=== PATIENT | male | born 1990 | race Caucasian/White ===

== ENCOUNTER 2024-11-23 12:37 | Emergency (ER) | payer OTHER, SELFPAY ==
[2024-11-23 12:45] VITALS: BP 149/83; PULSE 97; RESP 14; TEMP 37.1; O2SAT 95; BMI 43.7
[2024-11-23 13:04] VITALS: BP 149/83; PULSE 97; RESP 14; TEMP 37.1; O2SAT 95
[2024-11-23] MEDS: Ketorolac Tromethamine 30 MG/ML VIAL IM (13:15)
[2024-11-23 13:45] LABS: MANUAL DIFF FLAG NO
[2024-11-23 13:50] LABS: Basophils Percent Auto 0.3 % (0-2); Eosinophils Percent Auto 0.5 % (0-4); Hematocrit 43.2 % (42.0-52.0); Hemoglobin 15.7 g/dl (14.0-18.0); Imm Gran Abs Auto 0.03 X10*3/uL (0.00-0.03); Imm Gran Pct Auto 0.3 % (0.0-0.4); Lymphocytes Absolute Auto 1.3 X10*3/uL (1.2-4.9); Mean Corpuscular HGB Conc 36.3 g/dl (31.0-36.0); Mean Corpuscular Hemoglobin 32.4 pg (27.0-33.0); Mean Corpuscular Volume 89.1 fL (80.0-98.0); Mean Platelet Volume 9.4 fL (9.4-12.4); Monocytes Absolute Auto 0.7 X10*3/uL (0.1-1.2); Monocytes Percent Auto 7.5 % (2-11); Neutrophils Absolute Auto 6.7 x10*3/uL (2.0-8.3); Neutrophils Percent Auto 76.4 % (45-73); Platelet Count 254 X10*3/uL (160-400); Red Blood Count 4.85 X10*6/uL (4.60-5.80); Red Cell Distribution Width 12.1 % (11.0-16.0); White Blood Count 8.8 X10*3/uL (4.8-10.8)
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
[2024-11-23] MEDS: Diphth,Pertus(ACell),Tet Adult 0.5 ML SYRINGE IM (13:55)
--- NOTE | 2024-11-23 13:55 | PC.NURSE ---
Called Rx for missing antibiotic.
[2024-11-23] MEDS: Doxycycline Monohydrate 100 MG CAPSULE PO (13:57)
[2024-11-23 14:05] LABS: Alanine Aminotransferase 31 U/L (0-40); Albumin Level 4.1 g/dL (3.5-5.0); Anion Gap 11 (12-20); Aspartate Amino Transferase 29 U/L (5-37); Bilirubin Total 0.3 mg/dL (0.0-1.0); Blood Urea Nitrogen 15 mg/dL (9-16); Carbon Dioxide 22 mmol/L (22-29); Chloride 110 mmol/L (96-108); Creatinine Clr Calc Pharmacy 173.6; Estimated Glomerular Filt Rate > 60; Glucose Random 107 mg/dL (60-115); Potassium 3.8 mmol/L (3.3-5.1); Sodium 139 mmol/L (135-145); Total Protein 7.2 g/dL (6.5-8.0)
[2024-11-23 14:24] LABS: Alkaline Phosphatase 91 U/L (39-117); HBS Num1 0.08 mIU/mL (0-7.99); HBc Num1 0.08 S/CO (0.00-0.79); HBsAGNum1 0.29 S/CO (0.00-0.99); HIV AB/AG Nonreactive (Nonreactive); HIV Num 1 0.06 S/CO (0.00-0.99); Hepatitis A Antibody IgM 0.14 Index (0-0.79); Hepatitis B Core Antibody Nonreactive (Nonreactive); Hepatitis B Surface Antigen Negative (Negative); ~Hepatitis A Antibody IgM Nonreactive (Nonreactive); ~Hepatitis B Surface Antibody NONREACTIVE (Nonreactive); ~Hepatitis C Antibody Nonreactive (Nonreactive)
--- NOTE | 2024-11-23 14:32 | PC.NURSE ---
Called Rx for status of when missing pyxis med would arrive.
[2024-11-23] MEDS: Clindamycin HCL 150 MG CAPSULE 450 MG PO (14:48)
[2024-11-23 14:57] VITALS: BP 149/83; PULSE 97; RESP 14; TEMP 37.1; O2SAT 95
== END 2024-11-23 14:58 | disposition home or self-care (01) ==
PROVIDERS: Physician Assistant Medical; Emergency Provider Emergency Medicine
DX: S41.152A Open bite of left upper arm, initial encounter (principal); Y04.1XXA Assault by human bite, initial encounter; Z77.21 Contact with and (suspected) exposure to potentially hazardous body fluids; Z23 Encounter for immunization; Y93.89 Activity, other specified; Y92.9 Unspecified place or not applicable; Y99.0 Civilian activity done for income or pay
CPT/HCPCS: 36415; 80053; 82550; 85025; 86704; 86706; 86709; 86803; 87340; 87389; 90471; 90715; 96372; 99284; J1885

== ENCOUNTER 2025-08-24 21:52 | Emergency (ER) | payer OTHER, SELFPAY ==
--- NOTE | ~2025-08-24 | XR_ITS ---
CLINICAL HISTORY: cough, sob 2 view chest x-ray Comparison: None provided Findings: Lungs are clear without acute infiltrates. No pneumothorax. Heart size normal. No acute bony abnormalities. Impression: No acute processes This document has been electronically signed by: Charly Morrison MD on 08/24/2025 22:55:29
[2025-08-24 21:59] VITALS: BP 126/76; PULSE 91; RESP 18; TEMP 38.8; O2SAT 95; BMI 37.9
[2025-08-24 22:29] LABS: MANUAL DIFF FLAG NO
[2025-08-24 22:35] LABS: Hematocrit 40.8 % (42.0-52.0); Hemoglobin 14.2 g/dl (14.0-18.0); Imm Gran Abs Auto 0.01 X10*3/uL (0.00-0.03); Imm Gran Pct Auto 0.1 % (0.0-0.4); Lymphocytes Absolute Auto 1.3 X10*3/uL (1.2-4.9); Mean Corpuscular HGB Conc 34.8 g/dl (31.0-36.0); Mean Corpuscular Hemoglobin 31.6 pg (27.0-33.0); Mean Corpuscular Volume 90.7 fL (80.0-98.0); NRBC Abs Auto 0.000 X10*3/uL (0.0-0.012); NRBC Pct Auto 0.0 /100WBC (0.0-0.2); Platelet Count 238 X10*3/uL (160-400); Red Blood Count 4.50 X10*6/uL (4.60-5.80); White Blood Count 8.1 X10*3/uL (4.8-10.8)
[2025-08-24 22:39] LABS: IDNOW Serial# 6674DD1D; Strep A Nucleic Acid Negative (Negative)
[2025-08-24 22:41] LABS: Anion Gap 13 (12-20); Blood Urea Nitrogen 13 mg/dL (9-16); Calcium 8.9 mg/dL (8.4-10.2); Carbon Dioxide 25 mmol/L (22-29); Chloride 106 mmol/L (96-108); Creatinine Clr Calc Pharmacy 142.4; Estimated Glomerular Filt Rate > 60; Potassium 3.7 mmol/L (3.3-5.1); Sodium 140 mmol/L (135-145)
[2025-08-24 23:09] LABS: Resp Syncy Virus RNA Qual PCR NEGATIVE (Negative); SARS COV2 PCR INHOUSE NEGATIVE (Negative)
[2025-08-24 23:40] VITALS: BP 122/61; PULSE 82; RESP 12; TEMP 37.3; O2SAT 95
--- OUTSIDE RECORDS SUMMARY | 2025-08-25 00:19 | XMS_ITS | Encounter Summary ---
Author Organization [facility] Address [address] [place] [id number] Phone Care Team Providers Care Ammonia Distiller Name Role Phone Radha Serrano MD Primary Care Provider Unava ilable Encounter Details Date Type Department Care Team (Late st Contact Info) Description 04/16/2017 Conversion Encounter [facility] - [address] [phone] Social History Tobacco Use Types Packs/Day Years Used Date Smoking Tobacco: Never Assessed Sex and Gender Information Value Date Recorded Sex Assigned at Not on file Legal Sex Male 4:29 PM EDT Gender Identity Not on file Sexual Orientation Not on file documented as of this encounter Plan of Treatment Not on file documented as of this encounter Visit Diagnoses Not on filedocumented in this encounter Care Teams Ammonia Distiller Relationship Specialty Start Date End Date Radha Serrano MD PCP - General 04/10/17 documented as of this encounter
--- OUTSIDE RECORDS SUMMARY | 2025-08-25 00:19 | XMS_ITS | Patient Health Record ---
Author Organization [facility] [address] Address [address] [place] [address] Care Team Providers Care Crew Clerk Name Role Phone BRIAN SMITH Unavailable [phone] MireyaAdwoa lassiter Unavailable [phone] TIM SANDHU Unavailable [phone] Allergies Allergen (clinical drug ingredient) Drug/Non Drug Allergy documented on EMR Reaction Allergy Type Onset Date Status amoxicillin Amoxicillin rash Drug Allergy Act aldair Wellbutrin rash Drug Allergy Active Results Component Value Reference Range Flag Notes URINALYSIS WITH REFLEX MICRO SCOPIC AND CULTURE Reviewed date:12/01/2024 09:52:27 AM Interpretation: Performing Lab: Notes/Report: Specific [place] Urine 1.023 1.003-1.030 pH, Urine 5.5 5.0-8.0 pH Leukocytes, Urine Negative Negative Nitrite, Urine Negative Negative Protein, Urine Negative <=Trace mg/dL Glucose, Urine Negative Negative mg/dL Ketones, Urine Trace Negative mg/dL A Urobilinogen, Urine 0.2 0.2-1.0 mg/dL Bilirubin, Urine Negative Negative Blood, Urine Negative Negative CBC WITH AUTO DIFFERENTIAL Reviewed date:12/06/2024 06:01:45 AM Interpretation: Performing Lab: Notes/Report: WBC 8.3 4.8-10.8 K/mcL RBC 4.70 4.50-5.50 M/mcL Hemoglobin 14.9 13.5-17.5 g/dL Hematocrit 43.3 42.0-54.0 % MCV 91.9 79.0-98.0 FL MCH 31.6 27.0-32.0 pcg MCHC 34.4 32.0-37.0 g/dL RDW 11.9 11.0-15.0 % Platelets 297 130-400 K/mcL MPV 9.7 7.0-11.0 FL NRBC 0.0 <1.0 % NRBC Absolute 0.00 <0.10 K/mcL Neutrophils Relative 65.4 Lymphocytes Relative 24.0 Monocytes Relative 8.6 Eosinophils Relative 1.2 Basophils Relative 0.4 Immature Granulocytes Relative 0.4 Neutrophils Absolute 5.42 1.50-7.00 K/mcL Lymphocytes Absolute 1.99 1.00-5.00 K/mcL Monocytes Absolute 0.71 0.20-1.00 K/mcL Eosinophils Absolute 0.10 0.00-0.50 K/mcL Basophils Absolute 0.03 0.00-0.20 K/mcL Immature Granulocytes Absolute 0.03 0.00-0.03 K/mcL LIPID PANEL WITH REFLEX TO D IRECT LDL Reviewed date:12/06/2024 06:02:01 AM Interpretation: Performing Lab: Notes/Report: Cholesterol 204 0-200 mg/dL H Triglycerides 211 0-150 mg/dL H HDL 37 >=40 mg/dL L LDL Calculated 125 0-100 mg/dL H VLDL Cholesterol Saul 42.2 Non HDL Chol. (LDL+VLDL) 167 <145 mg/dL H Chol/HDL Ratio 5.5 0.0-4.4 H VITAMIN D 25 HYDROXY Reviewed date:12/01/2024 09:53:48 AM Interpretation: Performing Lab: Notes/Report: Vit D, 25-Hydroxy 32.2 30.0-80.0 ng/mL THYROID STIMULATING HORMONE Reviewed date:12/06/2024 06:01:15 AM Interpretation: Performing Lab: Notes/Report: TSH 0.78 0.40-4.00 mcIU/mL COMPREHENSIVE METABOLIC PANE L Reviewed date:12/06/2024 06:01:36 AM Interpretation: Performing Lab: Notes/Report: Sodium 141 133-145 mmol/L Potassium 4.0 3.5-5.5 mmol/L Chloride 108 96-110 mmol/L CO2 24 21-32 mmol/L Anion Gap 9 3-11 Glucose 74 70-100 mg/dL BUN 13 5-25 mg/dL Creatinine 0.82 0.70-1.30 mg/dL eGFR 117 >=60 mL/min/1.73m2 Calcul ation based on the?Chronic Kidney Disease Epidemiology Collaboration (CKD-EPI) equation refit?without adjustment for race. BUN/Creatinine Ratio 15.9 Calcium 9.3 8.5-10.5 mg/dL AST (SGOT) 22 10-42 unit/L ALT (SGPT) 36 10-60 unit/L Alkaline Phosphatase 104 42-121 unit/L Total Protein 7.2 6.0-8.0 g/dL Albumin 3.9 3.2-5.0 g/dL Total Bilirubin 0.3 0.0-1.4 mg/dL HEMOGLOBIN A1C Reviewed date:12/01/2024 09:53:34 AM Interpretation: Performing Lab: Notes/Report: Hemoglobin A1C 5.4 <6.5 % Mean Bld Glu Estim. 108 TREPONEMA PALLIDUM ANTIBODY WITH REFLEX TO RPR AND PARTICLE AGGLUTINATION Reviewed date:12/01/2024 09:52:44 AM Interpretation: Performing Lab: Notes/Report: T. Pallidum Antibodies Negative Negative HIV 1, 2 ANTIBODY, P24 ANTIG EN WITH REFLEX TO DIFFERENTIATION Reviewed date:12/01/2024 09:53:12 AM Interpretation: Performing Lab: Notes/Report: This assay is a 4th generation assay allowing for earlier detection of HIV infection by detecting the presence of the HIV-1 p24 antigen as well as the traditional antibodies to HIV type 1 (including group O) and type 2. Use of a 4th generation assay is the current CDC recommendation for HIV screening. HIV Combo AB/AG Negative Negative CHLAMYDIA TRACHOMATIS AND NE ISSERIA GONORRHOEAE MOLECULAR STUDY Reviewed date:12/01/2024 09:52:15 AM Interpretation: Performing Lab: Notes/Report: Neisseria gonorrhoeae PCR Negative Negative Chlamydia trachomatis PCR Negative Negative HEPATITIS A ANTIBODY IGM Reviewed date:12/01/2024 09:53:25 AM Interpretation: Performing Lab: Notes/Report: Over the counter supplements containing high doses of biotin may interfere with this assay. If interference is suspected, patients shoud be retested after refraining from biotin supplements for 72 hours. Hepatitis A Antibody IgM Negative Negative Reason For Referral No Information Medications Medication SIG (Take, Route, Frequency, Duration) Notes Start Date End Date Status Zepbound 12.5 MG/0.5ML Solution Auto-injector 0.5 mL Subcutaneous once weekly; Duration: 30 days 08/09/2025 Active Social History Section Notes: Pt denies any tobacco use Pt admits to drinking alchohol socially once a month. denies any recreational drug use Pt denies any tobacco use Pt admits to drinking alchohol socially once a month. denies any recreational drug use Pt denies any tobacco use Pt admits to drinking alchohol socially once a month. denies any recreational drug use Pt denies any tobacco use Pt admits to drinking alchohol socially once a month. denies any recreational drug use Pt denies any tobacco use Pt admits to drinking alchohol socially once a month. denies any recreational drug use Pt denies any tobacco use Pt admits to drinking alchohol socially once a month. denies any recreational drug use Pt denies any tobacco use Pt admits to drinking alchohol socially once a month. denies any recreational drug use Pt denies any tobacco use Pt admits to drinking alchohol socially once a month. denies any recreational drug use Pt denies any tobacco use Pt admits to drinking alchohol socially once a month. denies any recreational drug use Pt denies any tobacco use Pt admits to drinking alchohol socially once a month. denies any recreational drug use Pt denies any tobacco use Pt admits to drinking alchohol socially once a month. denies any recreational drug use Pt denies any tobacco use Pt admits to drinking alchohol socially once a month. denies any recreational drug use Pt denies any tobacco use Pt admits to drinking alchohol socially once a month. denies any recreational drug use Pt denies any tobacco use Pt admits to drinking alchohol socially once a month. denies any recreational drug use Pt denies any tobacco use Pt admits to drinking alchohol socially once a month. denies any recreational drug use Pt denies any tobacco use Pt admits to drinking alchohol socially once a month. denies any recreational drug use Pt denies any tobacco use Pt admits to drinking alchohol socially once a month. denies any recreational drug use Pt denies any tobacco use Pt admits to drinking alchohol socially once a month. denies any recreational drug use Pt denies any tobacco use Pt admits to drinking alchohol socially once a month. denies any recreational drug use Pt denies any tobacco use Pt admits to drinking alchohol socially once a month. denies any recreational drug use Pt denies any tobacco use Pt admits to drinking alchohol socially once a month. denies any recreational drug use Problems Problem Type SNOMED Code ICD Code Onset Dates Problem Status W/U Status Risk Notes Problem Vitamin D deficiency (77638019) Vitamin D deficiency, unspecified (E55.9) Active confirmed Problem Morbid obesity (disorder) (271455771) Morbid (severe) obesity due to excess calories (E66.01) Active confirmed Problem Essential hypertension (51440386) Essential hypertension (I10) Active confirmed Problem Morbid obesity (052327157) Morbid obesity (E66.01) Active confirmed Problem Hyperlipidaemia (24202910) Hyperlipidemia, unspecified hyperlipidemia type (E78.5) Active confirmed Problem Hypothyroidism (21957888) Hypothyroidism, unspecified type (E03.9) Active confirmed Problem Vitamin D deficiency (28827722) Vitamin D deficiency (E55.9) Active confirmed Problem Diabetes mellitus screening (073997404) Diabetes mellitus screening (Z13.1) Active confirmed Problem Body mass index 40+ - morbidly obese (963437241) BMI 40.0-44.9, adult (Z68.41) Active confirmed Problem Diabetes mellitus screening (549404522) Screening for diabetes mellitus (Z13.1) Active confirmed Problem Obese class II (195712085357111) BMI 39.0-39.9,adult (Z68.39) Active confirmed Problem Body mass index 40+ - severely obese (715234536) BMI 45.0-49.9, adult (Z68.42) Active confirmed Problem Body mass index 40+ - severely obese (314145841) Body mass index [BMI] 40.0-44.9, adult (Z68.41) Active confirmed Problem Venereal disease screening (351276889) Encounter for screening examination for sexually transmitted disease (Z11.3) Active confirmed Problem Lipid screening (434960050) Lipid screening (Z13.220) Active confirmed Problem Congenital hypothyroidism screening test (140684092) Screening for hypothyroidism (Z13.29) Active confirmed Problem Localized, primary osteoarthritis of the pelvic region and thigh (723437456) Osteoarthritis of left hip, unspecified osteoarthritis type (M16.12) Active confirmed Vital Signs Heart Rate 66 /min 08/09/2025 Oximetry 98 % 08/09/2025 Blood pressure diastolic 72 mm Hg 08/09/2025 Height 77 in 08/09/2025 Blood pressure systolic 124 mm Hg 08/09/2025 Weight 321 lbs 08/09/2025 BMI 38.06 kg/m2 08/09/2025 Encounters Encounter Location Date Provider Diagnosis [facility] [address] [facility] [address] [place] [address] 09/01/2024 Adwoa Svrcek [facility] [address] [facility] [address] [place] [address] 09/07/2024 TIM SANDHU [facility] [address] [facility] [address] [place] [address] 02/23/2025 Adwoa Svrcek [facility] [address] [address] 12/06/2024 Adwoa Svrcek Morbid (severe) obes ity due to excess calories E66.01 ; Body mass index [BMI] 40.0-44.9, adult Z68.41 ; Essential hypertension I10 ; Hyperlipidemia, unspecified hyperlipidemia type E78.5 and Weight loss counseling, encounter for Z71.3 [facility] [address] [address] 01/11/2025 Adwoa Svrcek Morbid (severe) obes ity due to excess calories E66.01 ; Body mass index [BMI] 40.0-44.9, adult Z68.41 ; Essential hypertension I10 ; Hyperlipidemia, unspecified hyperlipidemia type E78.5 and Weight loss counseling, encounter for Z71.3 [facility] [address] [address] 2025 Adwoa Svrcek Morbid (severe) obes ity due to excess calories E66.01 ; BMI 39.0-39.9,adult Z68.39 ; Essential hypertension I10 ; Hyperlipidemia, unspecified hyperlipidemia type E78.5 and Weight loss counseling, encounter for Z71.3 [facility] [address] [address] 04/05/2025 Adwoa Svrcek Morbid (severe) obes ity due to excess calories E66.01 ; BMI 39.0-39.9,adult Z68.39 ; Essential hypertension I10 ; Hyperlipidemia, unspecified hyperlipidemia type E78.5 and Weight loss counseling, encounter for Z71.3 [facility] [address] 05/17/2025 Adwoa Svrcek Morbid (severe) obes ity due to excess calories E66.01 ; BMI 39.0-39.9,adult Z68.39 ; Essential hypertension I10 ; Hyperlipidemia, unspecified hyperlipidemia type E78.5 and Weight loss counseling, encounter for Z71.3 [facility] [address] 06/21/2025 Adwoa Svrcek Morbid (severe) obes ity due to excess calories E66.01 ; BMI 39.0-39.9,adult Z68.39 ; Essential hypertension I10 ; Hyperlipidemia, unspecified hyperlipidemia type E78.5 and Weight loss counseling, encounter for Z71.3 [facility] [address] 08/09/2025 Adwoa Svrcek Morbid (severe) obes ity due to excess calories E66.01 ; BMI 39.0-39.9,adult Z68.39 ; Essential hypertension I10 ; Hyperlipidemia, unspecified hyperlipidemia type E78.5 and Weight loss counseling, encounter for Z71.3 [facility] [address] 09/07/2024 TIM PHOEBE Morbid obesity E66.0 1 ; BMI 40.0-44.9, adult Z68.41 ; Hyperlipidemia, unspecified hyperlipidemia type E78.5 ; Essential hypertension I10 and Osteoarthritis of left hip, unspecified osteoarthritis type M16.12 [facility] [address] 10/05/2024 Adwoa Svrcek Morbid (severe) obes ity due to excess calories E66.01 ; Body mass index [BMI] 40.0-44.9, adult Z68.41 ; Essential hypertension I10 ; Vitamin D deficiency, unspecified E55.9 and Hyperlipidemia, unspecified hyperlipidemia type E78.5 [facility] [address] 11/01/2024 Adwoa Svrcek Morbid (severe) obes ity due to excess calories E66.01 ; Body mass index [BMI] 40.0-44.9, adult Z68.41 ; Essential hypertension I10 and Hyperlipidemia, unspecified hyperlipidemia type E78.5 [facility] [address] [address] 11/30/2024 Adwoa Brown Annual physical exam Z00.00 ; Encounter for screening examination for sexually transmitted disease Z11.3 ; Alcohol screening Z13.39 and Encounter for screening for other disorder Z13.89 Assessments Encounter Date Diagnosis (ICD Code) Assessment Notes Treatment Notes Treatment Clinical Notes Section Notes 08/09/2025 Morbid (severe) obesity due to excess calories (ICD-10 - E66.01) #Morbid obesity. 321 pounds, BMI 39.1. He is doing fantastic on Zepbound 12.5 mg. Will continue current regimen. Continue consistent lifestyle modifications, healthy diet with focus on protein. Follow-up in 6 to 8 weeks sooner with any concerns. #HTN. At goal. Will monitor. #Hyperlipidemia. Improving. Plan for updated labs at next visit. The patient will continue exercise regimen with an emphasis on improving/increasing steps to at least 6,000-10,000 steps per day. Increasing cardio and strength training exercises as tolerated to improve weight loss and work on building muscle mass. Patient is committed to smarter eating with calorie counting and mindful eating. Limiting processed foods and carbohydrates and increasing leafy greens and lean proteins as well as fruits into their diet. Patient was counseled on the importance of eating local, organic food when possible. Patient has been counseled regarding effects of GLP/GIP-1 agonists and other FDA approved weight loss medications with regards to a multifactorial approach of weight loss as mentioned above and that the medication alone will not be sufficient to meet patients goals. We discussed holistic medication approach with emphasis on lifestyle modification. Discussed obesity as it increases risk of diabetes, cardiovascular disease, and/or organ damage. We spent a lot of time discussing the relationship between food, exercise, sleep, mental health, and obesity. We discussed the importance of having SECAs done every visit and having accountability done during these visits. That the scale is done to monitor not only weight loss but the body composition during medication management and healthy lifestyle changes. We discussed that if the patient is unable at times to financially afford this scale that we would rather waive the fee and have the scale done than have the patient not have the scale obtained. Will follow up with the patient in 4 weeks time to monitor weight loss. Total time was 30 min, greater than 50 % of time was spent on care coordination. Case discussed with collaborating physician Claude Jain who reviewed the assessment and plan. Chart, medications, labs, vital signs reviewed. Dictation was accomplished with the use of [employer] voice recognition software, prone to medical misidentifications and grammatical errors. This is unintentional and the practitioner does try to identify and correct these, but some could still be present. Please do not hesitate to contact practitioner for clarification. All questions answered to patients satisfaction. Patient verbalized understanding of diagnosis and treatments explained. To call sooner prior to next visit it any questions/concerns arise. 08/09/2025 BMI 39.0-39.9,adult (ICD-10 - Z68.39) #Morbid obesity. 321 pounds, BMI 39.1. He is doing fantastic on Zepbound 12.5 mg. Will continue current regimen. Continue consistent lifestyle modifications, healthy diet with focus on protein. Follow-up in 6 to 8 weeks sooner with any concerns. #HTN. At goal. Will monitor. #Hyperlipidemia. Improving. Plan for updated labs at next visit. The patient will continue exercise regimen with an emphasis on improving/increasing steps to at least 6,000-10,000 steps per day. Increasing cardio and strength training exercises as tolerated to improve weight loss and work on building muscle mass. Patient is committed to smarter eating with calorie counting and mindful eating. Limiting processed foods and carbohydrates and increasing leafy greens and lean proteins as well as fruits into their diet. Patient was counseled on the importance of eating local, organic food when possible. Patient has been counseled regarding effects of GLP/GIP-1 agonists and other FDA approved weight loss medications with regards to a multifactorial approach of weight loss as mentioned above and that the medication alone will not be sufficient to meet patients goals. We discussed holistic medication approach with emphasis on lifestyle modification. Discussed obesity as it increases risk of diabetes, cardiovascular disease, and/or organ damage. We spent a lot of time discussing the relationship between food, exercise, sleep, mental health, and obesity. We discussed the importance of having SECAs done every visit and having accountability done during these visits. That the scale is done to monitor not only weight loss but the body composition during medication management and healthy lifestyle changes. We discussed that if the patient is unable at times to financially afford this scale that we would rather waive the fee and have the scale done than have the patient not have the scale obtained. Will follow up with the patient in 4 weeks time to monitor weight loss. Total time was 30 min, greater than 50 % of time was spent on care coordination. Case discussed with collaborating physician Claude Jain who reviewed the assessment and plan. Chart, medications, labs, vital signs reviewed. Dictation was accomplished with the use of [employer] voice recognition software, prone to medical misidentifications and grammatical errors. This is unintentional and the practitioner does try to identify and correct these, but some could still be present. Please do not hesitate to contact practitioner for clarification. All questions answered to patients satisfaction. Patient verbalized understanding of diagnosis and treatments explained. To call sooner prior to next visit it any questions/concerns arise. 06/21/2025 Morbid (severe) obesity due to excess calories (ICD-10 - E66.01) #Morbid obesity. 06/21/25: 324.4 pounds, BMI 39.5. He is doing well on Zepbound 12.5 mg. Tolerating it well. Weight is down 3-1/2 pounds. Fat mass is down 7 pounds. Muscle mass is up. Will continue consistent lifestyle modifications including regular exercise and higher protein diet. Will plan to get updated labs at next visit. Follow-up in 4 to 6 weeks sooner with any concerns. #HTN. At goal. Will monitor. #Hyperlipidemia. Improving. Plan for updated labs at next visit. The patient will continue exercise regimen with an emphasis on improving/increasing steps to at least 6,000-10,000 steps per day. Increasing cardio and strength training exercises as tolerated to improve weight loss and work on building muscle mass. Patient is committed to smarter eating with calorie counting and mindful eating. Limiting processed foods and carbohydrates and increasing leafy greens and lean proteins as well as fruits into their diet. Patient was counseled on the importance of eating local, organic food when possible. Patient has been counseled regarding effects of GLP/GIP-1 agonists and other FDA approved weight loss medications with regards to a multifactorial approach of weight loss as mentioned above and that the medication alone will not be sufficient to meet patients goals. We discussed holistic medication approach with emphasis on lifestyle modification. Discussed obesity as it increases risk of diabetes, cardiovascular disease, and/or organ damage. We spent a lot of time discussing the relationship between food, exercise, sleep, mental health, and obesity. We discussed the importance of having SECAs done every visit and having accountability done during these visits. That the scale is done to monitor not only weight loss but the body composition during medication management and healthy lifestyle changes. We discussed that if the patient is unable at times to financially afford this scale that we would rather waive the fee and have the scale done than have the patient not have the scale obtained. Will follow up with the patient in 4 weeks time to monitor weight loss. Total time was 30 min, greater than 50 % of time was spent on care coordination. Case discussed with collaborating physician Claude Jain who reviewed the assessment and plan. Chart, medications, labs, vital signs reviewed. Dictation was accomplished with the use of [employer] voice recognition software, prone to medical misidentifications and grammatical errors. This is unintentional and the practitioner does try to identify and correct these, but some could still be present. Please do not hesitate to contact practitioner for clarification. All questions answered to patients satisfaction. Patient verbalized understanding of diagnosis and treatments explained. To call sooner prior to next visit it any questions/concerns arise. 06/21/2025 BMI 39.0-39.9,adult (ICD-10 - Z68.39) #Morbid obesity. 06/21/25: 324.4 pounds, BMI 39.5. He is doing well on Zepbound 12.5 mg. Tolerating it well. Weight is down 3-1/2 pounds. Fat mass is down 7 pounds. Muscle mass is up. Will continue consistent lifestyle modifications including regular exercise and higher protein diet. Will plan to get updated labs at next visit. Follow-up in 4 to 6 weeks sooner with any concerns. #HTN. At goal. Will monitor. #Hyperlipidemia. Improving. Plan for updated labs at next visit. The patient will continue exercise regimen with an emphasis on improving/increasing steps to at least 6,000-10,000 steps per day. Increasing cardio and strength training exercises as tolerated to improve weight loss and work on building muscle mass. Patient is committed to smarter eating with calorie counting and mindful eating. Limiting processed foods and carbohydrates and increasing leafy greens and lean proteins as well as fruits into their diet. Patient was counseled on the importance of eating local, organic food when possible. Patient has been counseled regarding effects of GLP/GIP-1 agonists and other FDA approved weight loss medications with regards to a multifactorial approach of weight loss as mentioned above and that the medication alone will not be sufficient to meet patients goals. We discussed holistic medication approach with emphasis on lifestyle modification. Discussed obesity as it increases risk of diabetes, cardiovascular disease, and/or organ damage. We spent a lot of time discussing the relationship between food, exercise, sleep, mental health, and obesity. We discussed the importance of having SECAs done every visit and having accountability done during these visits. That the scale is done to monitor not only weight loss but the body composition during medication management and healthy lifestyle changes. We discussed that if the patient is unable at times to financially afford this scale that we would rather waive the fee and have the scale done than have the patient not have the scale obtained. Will follow up with the patient in 4 weeks time to monitor weight loss. Total time was 30 min, greater than 50 % of time was spent on care coordination. Case discussed with collaborating physician Claude Jain who reviewed the assessment and plan. Chart, medications, labs, vital signs reviewed. Dictation was accomplished with the use of [employer] voice recognition software, prone to medical misidentifications and grammatical errors. This is unintentional and the practitioner does try to identify and correct these, but some could still be present. Please do not hesitate to contact practitioner for clarification. All questions answered to patients satisfaction. Patient verbalized understanding of diagnosis and treatments explained. To call sooner prior to next visit it any questions/concerns arise. 05/17/2025 Morbid (severe) obesity due to excess calories (ICD-10 - E66.01) #Morbid obesity. 05/17/25: 326.9 pounds, BMI 39.8. He is doing well on Zepbound 12.5 mg. Tolerating it well. Weight is down 3-1/2 pounds. Fat mass is down 7 pounds. Muscle mass is up. Will continue consistent lifestyle modifications including regular exercise and higher protein diet. Will plan to get updated labs at next visit. Follow-up in 4 to 6 weeks sooner with any concerns. #HTN. At goal. Will monitor. #Hyperlipidemia. Improving. Plan for updated labs at next visit. The patient will continue exercise regimen with an emphasis on improving/increasing steps to at least 6,000-10,000 steps per day. Increasing cardio and strength training exercises as tolerated to improve weight loss and work on building muscle mass. Patient is committed to smarter eating with calorie counting and mindful eating. Limiting processed foods and carbohydrates and increasing leafy greens and lean proteins as well as fruits into their diet. Patient was counseled on the importance of eating local, organic food when possible. Patient has been counseled regarding effects of GLP/GIP-1 agonists and other FDA approved weight loss medications with regards to a multifactorial approach of weight loss as mentioned above and that the medication alone will not be sufficient to meet patients goals. We discussed holistic medication approach with emphasis on lifestyle modification. Discussed obesity as it increases risk of diabetes, cardiovascular disease, and/or organ damage. We spent a lot of time discussing the relationship between food, exercise, sleep, mental health, and obesity. We discussed the importance of having SECAs done every visit and having accountability done during these visits. That the scale is done to monitor not only weight loss but the body composition during medication management and healthy lifestyle changes. We discussed that if the patient is unable at times to financially afford this scale that we would rather waive the fee and have the scale done than have the patient not have the scale obtained. Will follow up with the patient in 4 weeks time to monitor weight loss. Total time was 30 min, greater than 50 % of time was spent on care coordination. Case discussed with collaborating physician Claude Jain who reviewed the assessment and plan. Chart, medications, labs, vital signs reviewed. Dictation was accomplished with the use of [employer] voice recognition software, prone to medical misidentifications and grammatical errors. This is unintentional and the practitioner does try to identify and correct these, but some could still be present. Please do not hesitate to contact practitioner for clarification. All questions answered to patients satisfaction. Patient verbalized understanding of diagnosis and treatments explained. To call sooner prior to next visit it any questions/concerns arise. 05/17/2025 BMI 39.0-39.9,adult (ICD-10 - Z68.39) #Morbid obesity. 05/17/25: 326.9 pounds, BMI 39.8. He is doing well on Zepbound 12.5 mg. Tolerating it well. Weight is down 3-1/2 pounds. Fat mass is down 7 pounds. Muscle mass is up. Will continue consistent lifestyle modifications including regular exercise and higher protein diet. Will plan to get updated labs at next visit. Follow-up in 4 to 6 weeks sooner with any concerns. #HTN. At goal. Will monitor. #Hyperlipidemia. Improving. Plan for updated labs at next visit. The patient will continue exercise regimen with an emphasis on improving/increasing steps to at least 6,000-10,000 steps per day. Increasing cardio and strength training exercises as tolerated to improve weight loss and work on building muscle mass. Patient is committed to smarter eating with calorie counting and mindful eating. Limiting processed foods and carbohydrates and increasing leafy greens and lean proteins as well as fruits into their diet. Patient was counseled on the importance of eating local, organic food when possible. Patient has been counseled regarding effects of GLP/GIP-1 agonists and other FDA approved weight loss medications with regards to a multifactorial approach of weight loss as mentioned above and that the medication alone will not be sufficient to meet patients goals. We discussed holistic medication approach with emphasis on lifestyle modification. Discussed obesity as it increases risk of diabetes, cardiovascular disease, and/or organ damage. We spent a lot of time discussing the relationship between food, exercise, sleep, mental health, and obesity. We discussed the importance of having SECAs done every visit and having accountability done during these visits. That the scale is done to monitor not only weight loss but the body composition during medication management and healthy lifestyle changes. We discussed that if the patient is unable at times to financially afford this scale that we would rather waive the fee and have the scale done than have the patient not have the scale obtained. Will follow up with the patient in 4 weeks time to monitor weight loss. Total time was 30 min, greater than 50 % of time was spent on care coordination. Case discussed with collaborating physician Claude Jain who reviewed the assessment and plan. Chart, medications, labs, vital signs reviewed. Dictation was accomplished with the use of [employer] voice recognition software, prone to medical misidentifications and grammatical errors. This is unintentional and the practitioner does try to identify and correct these, but some could still be present. Please do not hesitate to contact practitioner for clarification. All questions answered to patients satisfaction. Patient verbalized understanding of diagnosis and treatments explained. To call sooner prior to next visit it any questions/concerns arise. 04/05/2025 Morbid (severe) obesity due to excess calories (ICD-10 - E66.01) #Morbid obesity. 8/6/25: 330.5 pounds, BMI 40.2 He is doing fantastic on Zepbound. Currently on 10 mg dose. Has noticed plateau over the last month or 2. Will increase to 12.5 mg weekly on next refill. Continue to work on consistent protein intake, hydration and regular exercise. Follow-up in 4 to 6 weeks sooner with any concerns. #HTN. At goal. Will monitor. #Hyperlipidemia. Improving. Monitor labs. The patient will continue exercise regimen with an emphasis on improving/increasing steps to at least 6,000-10,000 steps per day. Increasing cardio and strength training exercises as tolerated to improve weight loss and work on building muscle mass. Patient is committed to smarter eating with calorie counting and mindful eating. Limiting processed foods and carbohydrates and increasing leafy greens and lean proteins as well as fruits into their diet. Patient was counseled on the importance of eating local, organic food when possible. Patient has been counseled regarding effects of GLP/GIP-1 agonists and other FDA approved weight loss medications with regards to a multifactorial approach of weight loss as mentioned above and that the medication alone will not be sufficient to meet patients goals. We discussed holistic medication approach with emphasis on lifestyle modification. Discussed obesity as it increases risk of diabetes, cardiovascular disease, and/or organ damage. We spent a lot of time discussing the relationship between food, exercise, sleep, mental health, and obesity. We discussed the importance of having SECAs done every visit and having accountability done during these visits. That the scale is done to monitor not only weight loss but the body composition during medication management and healthy lifestyle changes. We discussed that if the patient is unable at times to financially afford this scale that we would rather waive the fee and have the scale done than have the patient not have the scale obtained. Will follow up with the patient in 4 weeks time to monitor weight loss. Total time was 30 min, greater than 50 % of time was spent on care coordination. Case discussed with collaborating physician Claude Jain who reviewed the assessment and plan. Chart, medications, labs, vital signs reviewed. Dictation was accomplished with the use of [employer] voice recognition software, prone to medical misidentifications and grammatical errors. This is unintentional and the practitioner does try to identify and correct these, but some could still be present. Please do not hesitate to contact practitioner for clarification. All questions answered to patients satisfaction. Patient verbalized understanding of diagnosis and treatments explained. To call sooner prior to next visit it any questions/concerns arise. 04/05/2025 BMI 39.0-39.9,adult (ICD-10 - Z68.39) #Morbid obesity. 04/05/25: 330.5 pounds, BMI 40.2 He is doing fantastic on Zepbound. Currently on 10 mg dose. Has noticed plateau over the last month or 2. Will increase to 12.5 mg weekly on next refill. Continue to work on consistent protein intake, hydration and regular exercise. Follow-up in 4 to 6 weeks sooner with any concerns. #HTN. At goal. Will monitor. #Hyperlipidemia. Improving. Monitor labs. The patient will continue exercise regimen with an emphasis on improving/increasing steps to at least 6,000-10,000 steps per day. Increasing cardio and strength training exercises as tolerated to improve weight loss and work on building muscle mass. Patient is committed to smarter eating with calorie counting and mindful eating. Limiting processed foods and carbohydrates and increasing leafy greens and lean proteins as well as fruits into their diet. Patient was counseled on the importance of eating local, organic food when possible. Patient has been counseled regarding effects of GLP/GIP-1 agonists and other FDA approved weight loss medications with regards to a multifactorial approach of weight loss as mentioned above and that the medication alone will not be sufficient to meet patients goals. We discussed holistic medication approach with emphasis on lifestyle modification. Discussed obesity as it increases risk of diabetes, cardiovascular disease, and/or organ damage. We spent a lot of time discussing the relationship between food, exercise, sleep, mental health, and obesity. We discussed the importance of having SECAs done every visit and having accountability done during these visits. That the scale is done to monitor not only weight loss but the body composition during medication management and healthy lifestyle changes. We discussed that if the patient is unable at times to financially afford this scale that we would rather waive the fee and have the scale done than have the patient not have the scale obtained. Will follow up with the patient in 4 weeks time to monitor weight loss. Total time was 30 min, greater than 50 % of time was spent on care coordination. Case discussed with collaborating physician Claude Jain who reviewed the assessment and plan. Chart, medications, labs, vital signs reviewed. Dictation was accomplished with the use of [employer] voice recognition software, prone to medical misidentifications and grammatical errors. This is unintentional and the practitioner does try to identify and correct these, but some could still be present. Please do not hesitate to contact practitioner for clarification. All questions answered to patients satisfaction. Patient verbalized understanding of diagnosis and treatments explained. To call sooner prior to next visit it any questions/concerns arise. 2025 Morbid (severe) obesity due to excess calories (ICD-10 - E66.01) #Morbid obesity. 02/22/25: 327.7 pounds, BMI 39.9. He is doing fantastic on Zepbound 10 mg. Will continue current dose. Continue TISH injections monthly. Continue increased protein intake and consistent exercise. Follow-up with me in 4 to 6 weeks sooner with any concerns. #HTN. At goal. Will monitor. #Hyperlipidemia. Improving. Monitor labs. The patient will continue exercise regimen with an emphasis on improving/increasing steps to at least 6,000-10,000 steps per day. Increasing cardio and strength training exercises as tolerated to improve weight loss and work on building muscle mass. Patient is committed to smarter eating with calorie counting and mindful eating. Limiting processed foods and carbohydrates and increasing leafy greens and lean proteins as well as fruits into their diet. Patient was counseled on the importance of eating local, organic food when possible. Patient has been counseled regarding effects of GLP/GIP-1 agonists and other FDA approved weight loss medications with regards to a multifactorial approach of weight loss as mentioned above and that the medication alone will not be sufficient to meet patients goals. We discussed holistic medication approach with emphasis on lifestyle modification. Discussed obesity as it increases risk of diabetes, cardiovascular disease, and/or organ damage. We spent a lot of time discussing the relationship between food, exercise, sleep, mental health, and obesity. We discussed the importance of having SECAs done every visit and having accountability done during these visits. That the scale is done to monitor not only weight loss but the body composition during medication management and healthy lifestyle changes. We discussed that if the patient is unable at times to financially afford this scale that we would rather waive the fee and have the scale done than have the patient not have the scale obtained. Will follow up with the patient in 4 weeks time to monitor weight loss. Total time was 30 min, greater than 50 % of time was spent on care coordination. Case discussed with collaborating physician Claude Jain who reviewed the assessment and plan. Chart, medications, labs, vital signs reviewed. Dictation was accomplished with the use of [employer] voice recognition software, prone to medical misidentifications and grammatical errors. This is unintentional and the practitioner does try to identify and correct these, but some could still be present. Please do not hesitate to contact practitioner for clarification. All questions answered to patients satisfaction. Patient verbalized understanding of diagnosis and treatments explained. To call sooner prior to next visit it any questions/concerns arise. 2025 BMI 39.0-39.9,adult (ICD-10 - Z68.39) #Morbid obesity. 02/22/25: 327.7 pounds, BMI 39.9. He is doing fantastic on Zepbound 10 mg. Will continue current dose. Continue TISH injections monthly. Continue increased protein intake and consistent exercise. Follow-up with me in 4 to 6 weeks sooner with any concerns. #HTN. At goal. Will monitor. #Hyperlipidemia. Improving. Monitor labs. The patient will continue exercise regimen with an emphasis on improving/increasing steps to at least 6,000-10,000 steps per day. Increasing cardio and strength training exercises as tolerated to improve weight loss and work on building muscle mass. Patient is committed to smarter eating with calorie counting and mindful eating. Limiting processed foods and carbohydrates and increasing leafy greens and lean proteins as well as fruits into their diet. Patient was counseled on the importance of eating local, organic food when possible. Patient has been counseled regarding effects of GLP/GIP-1 agonists and other FDA approved weight loss medications with regards to a multifactorial approach of weight loss as mentioned above and that the medication alone will not be sufficient to meet patients goals. We discussed holistic medication approach with emphasis on lifestyle modification. Discussed obesity as it increases risk of diabetes, cardiovascular disease, and/or organ damage. We spent a lot of time discussing the relationship between food, exercise, sleep, mental health, and obesity. We discussed the importance of having SECAs done every visit and having accountability done during these visits. That the scale is done to monitor not only weight loss but the body composition during medication management and healthy lifestyle changes. We discussed that if the patient is unable at times to financially afford this scale that we would rather waive the fee and have the scale done than have the patient not have the scale obtained. Will follow up with the patient in 4 weeks time to monitor weight loss. Total time was 30 min, greater than 50 % of time was spent on care coordination. Case discussed with collaborating physician Claude Jain who reviewed the assessment and plan. Chart, medications, labs, vital signs reviewed. Dictation was accomplished with the use of [employer] voice recognition software, prone to medical misidentifications and grammatical errors. This is unintentional and the practitioner does try to identify and correct these, but some could still be present. Please do not hesitate to contact practitioner for clarification. All questions answered to patients satisfaction. Patient verbalized understanding of diagnosis and treatments explained. To call sooner prior to next visit it any questions/concerns arise. 01/11/2025 Morbid (severe) obesity due to excess calories (ICD-10 - E66.01) #Morbid obesity. 01/11/25: 332.7 pounds, BMI 40.5. He is doing fantastic on Zepbound now on 10 mg weekly. He is down an additional 12 pounds and 18 pounds of fat mass. Muscle mass is also up 4 pounds. Will continue current regimen and continue to work on consistent protein intake and regular exercise. TISH injection given today as well. Follow-up with me in 1 month sooner with any concerns. #HTN. BP improved today. Will monitor. #Hyperlipidemia. LDL improved, TGs mildly elevated, cut back on carbs/sugar in diet. The patient will continue exercise regimen with an emphasis on improving/increasing steps to at least 6,000-10,000 steps per day. Increasing cardio and strength training exercises as tolerated to improve weight loss and work on building muscle mass. Patient is committed to smarter eating with calorie counting and mindful eating. Limiting processed foods and carbohydrates and increasing leafy greens and lean proteins as well as fruits into their diet. Patient was counseled on the importance of eating local, organic food when possible. Patient has been counseled regarding effects of GLP/GIP-1 agonists and other FDA approved weight loss medications with regards to a multifactorial approach of weight loss as mentioned above and that the medication alone will not be sufficient to meet patients goals. We discussed holistic medication approach with emphasis on lifestyle modification. Discussed obesity as it increases risk of diabetes, cardiovascular disease, and/or organ damage. We spent a lot of time discussing the relationship between food, exercise, sleep, mental health, and obesity. We discussed the importance of having SECAs done every visit and having accountability done during these visits. That the scale is done to monitor not only weight loss but the body composition during medication management and healthy lifestyle changes. We discussed that if the patient is unable at times to financially afford this scale that we would rather waive the fee and have the scale done than have the patient not have the scale obtained. Will follow up with the patient in 4 weeks time to monitor weight loss. Total time was 30 min, greater than 50 % of time was spent on care coordination. Case discussed with collaborating physician Claude Jain who reviewed the assessment and plan. Chart, medications, labs, vital signs reviewed. Dictation was accomplished with the use of [employer] voice recognition software, prone to medical misidentifications and grammatical errors. This is unintentional and the practitioner does try to identify and correct these, but some could still be present. Please do not hesitate to contact practitioner for clarification. All questions answered to patients satisfaction. Patient verbalized understanding of diagnosis and treatments explained. To call sooner prior to next visit it any questions/concerns arise. 01/11/2025 Body mass index [BMI] 40.0-44.9, adult (ICD-10 - Z68.41) #Morbid obesity. 01/11/25: 332.7 pounds, BMI 40.5. He is doing fantastic on Zepbound now on 10 mg weekly. He is down an additional 12 pounds and 18 pounds of fat mass. Muscle mass is also up 4 pounds. Will continue current regimen and continue to work on consistent protein intake and regular exercise. TISH injection given today as well. Follow-up with me in 1 month sooner with any concerns. #HTN. BP improved today. Will monitor. #Hyperlipidemia. LDL improved, TGs mildly elevated, cut back on carbs/sugar in diet. The patient will continue exercise regimen with an emphasis on improving/increasing steps to at least 6,000-10,000 steps per day. Increasing cardio and strength training exercises as tolerated to improve weight loss and work on building muscle mass. Patient is committed to smarter eating with calorie counting and mindful eating. Limiting processed foods and carbohydrates and increasing leafy greens and lean proteins as well as fruits into their diet. Patient was counseled on the importance of eating local, organic food when possible. Patient has been counseled regarding effects of GLP/GIP-1 agonists and other FDA approved weight loss medications with regards to a multifactorial approach of weight loss as mentioned above and that the medication alone will not be sufficient to meet patients goals. We discussed holistic medication approach with emphasis on lifestyle modification. Discussed obesity as it increases risk of diabetes, cardiovascular disease, and/or organ damage. We spent a lot of time discussing the relationship between food, exercise, sleep, mental health, and obesity. We discussed the importance of having SECAs done every visit and having accountability done during these visits. That the scale is done to monitor not only weight loss but the body composition during medication management and healthy lifestyle changes. We discussed that if the patient is unable at times to financially afford this scale that we would rather waive the fee and have the scale done than have the patient not have the scale obtained. Will follow up with the patient in 4 weeks time to monitor weight loss. Total time was 30 min, greater than 50 % of time was spent on care coordination. Case discussed with collaborating physician Claude Jain who reviewed the assessment and plan. Chart, medications, labs, vital signs reviewed. Dictation was accomplished with the use of [employer] voice recognition software, prone to medical misidentifications and grammatical errors. This is unintentional and the practitioner does try to identify and correct these, but some could still be present. Please do not hesitate to contact practitioner for clarification. All questions answered to patients satisfaction. Patient verbalized understanding of diagnosis and treatments explained. To call sooner prior to next visit it any questions/concerns arise. 12/06/2024 Morbid (severe) obesity due to excess calories (ICD-10 - E66.01) #Morbid obesity. 12/06/24: 346 pounds, BMI 42.1. He is doing well on Zepbound but has noticed decreased appetite suppression at 7.5 mg dose. Will increase to 10 mg on next refill. MICC given today. Reviewed risk benefits adverse effects of medication. Reviewed updated Seca scale with patient. Continue consistent exercise protein intake and hydration. Resume regular exercise as tolerated. Follow-up in 1 month sooner with any concerns. #HTN. BP improved today. Will monitor. #HYperlipidemia. Updated labs reviewed. LDL improved, TGs mildly elevated, cut back on carbs/sugar in diet. The patient will continue exercise regimen with an emphasis on improving/increasing steps to at least 6,000-10,000 steps per day. Increasing cardio and strength training exercises as tolerated to improve weight loss and work on building muscle mass. Patient is committed to smarter eating with calorie counting and mindful eating. Limiting processed foods and carbohydrates and increasing leafy greens and lean proteins as well as fruits into their diet. Patient was counseled on the importance of eating local, organic food when possible. Patient has been counseled regarding effects of GLP/GIP-1 agonists and other FDA approved weight loss medications with regards to a multifactorial approach of weight loss as mentioned above and that the medication alone will not be sufficient to meet patients goals. We discussed holistic medication approach with emphasis on lifestyle modification. Discussed obesity as it increases risk of diabetes, cardiovascular disease, and/or organ damage. We spent a lot of time discussing the relationship between food, exercise, sleep, mental health, and obesity. We discussed the importance of having SECAs done every visit and having accountability done during these visits. That the scale is done to monitor not only weight loss but the body composition during medication management and healthy lifestyle changes. We discussed that if the patient is unable at times to financially afford this scale that we would rather waive the fee and have the scale done than have the patient not have the scale obtained. Will follow up with the patient in 4 weeks time to monitor weight loss. Total time was 30 min, greater than 50 % of time was spent on care coordination. #HTN. BP improved. #Hyperlipidemia- Reviewed updated labs, discussed dietary modifications and exercise. Case discussed with collaborating physician Claude Jain who reviewed the assessment and plan. Chart, medications, labs, vital signs reviewed. Dictation was accomplished with the use of [employer] voice recognition software, prone to medical misidentifications and grammatical errors. This is unintentional and the practitioner does try to identify and correct these, but some could still be present. Please do not hesitate to contact practitioner for clarification. All questions answered to patients satisfaction. Patient verbalized understanding of diagnosis and treatments explained. To call sooner prior to next visit it any questions/concerns arise. 12/06/2024 Body mass index [BMI] 40.0-44.9, adult (ICD-10 - Z68.41) #Morbid obesity. 12/06/24: 346 pounds, BMI 42.1. He is doing well on Zepbound but has noticed decreased appetite suppression at 7.5 mg dose. Will increase to 10 mg on next refill. MICC given today. Reviewed risk benefits adverse effects of medication. Reviewed updated Seca scale with patient. Continue consistent exercise protein intake and hydration. Resume regular exercise as tolerated. Follow-up in 1 month sooner with any concerns. #HTN. BP improved today. Will monitor. #HYperlipidemia. Updated labs reviewed. LDL improved, TGs mildly elevated, cut back on carbs/sugar in diet. The patient will continue exercise regimen with an emphasis on improving/increasing steps to at least 6,000-10,000 steps per day. Increasing cardio and strength training exercises as tolerated to improve weight loss and work on building muscle mass. Patient is committed to smarter eating with calorie counting and mindful eating. Limiting processed foods and carbohydrates and increasing leafy greens and lean proteins as well as fruits into their diet. Patient was counseled on the importance of eating local, organic food when possible. Patient has been counseled regarding effects of GLP/GIP-1 agonists and other FDA approved weight loss medications with regards to a multifactorial approach of weight loss as mentioned above and that the medication alone will not be sufficient to meet patients goals. We discussed holistic medication approach with emphasis on lifestyle modification. Discussed obesity as it increases risk of diabetes, cardiovascular disease, and/or organ damage. We spent a lot of time discussing the relationship between food, exercise, sleep, mental health, and obesity. We discussed the importance of having SECAs done every visit and having accountability done during these visits. That the scale is done to monitor not only weight loss but the body composition during medication management and healthy lifestyle changes. We discussed that if the patient is unable at times to financially afford this scale that we would rather waive the fee and have the scale done than have the patient not have the scale obtained. Will follow up with the patient in 4 weeks time to monitor weight loss. Total time was 30 min, greater than 50 % of time was spent on care coordination. #HTN. BP improved. #Hyperlipidemia- Reviewed updated labs, discussed dietary modifications and exercise. Case discussed with collaborating physician Claude Jain who reviewed the assessment and plan. Chart, medications, labs, vital signs reviewed. Dictation was accomplished with the use of [employer] voice recognition software, prone to medical misidentifications and grammatical errors. This is unintentional and the practitioner does try to identify and correct these, but some could still be present. Please do not hesitate to contact practitioner for clarification. All questions answered to patients satisfaction. Patient verbalized understanding of diagnosis and treatments explained. To call sooner prior to next visit it any questions/concerns arise. 11/30/2024 Annual physical exam (ICD-10 - Z00.00) #Annual physical. Actively working on weight reduction and is being followed in our weight management program. Continue healthy diet and regular exercise. Due for dental exam which he will schedule. Otherwise up-to-date on routine screenings and immunizations. Will get updated labs today follow-up pending results. Care proxy completed today. PHQ-9 12/25. Audit . Tetanus vaccine UTD at work last week. #STD screening. Asymptomatic however currently sexually active and willing to do routine screenings. Will follow-up pending results. Patient seen and examined. Comprehensive discussion was done on the following. 1. Nutrition: It is important to follow a healthy diet based on lots of vegetables and legumes and good fat. Avoid processed food and processed carbohydrates. Learn to prepare your own meals. Learn to read labels and avoid high fructose corn syrup, processed chemicals added to increase shelf life and preprepared meals. Avoid fast foods. Learn to eat slowly and plan meals for a week. Try to count calories and be mindful off daily calorie intake. Get into the habit of keeping an eye on your weight by using an appropriate scale. Learn to log exercise and discussed fitness Apps like [employer] which can help keep log off calories taken versus calories burned. Local food should be preferred. Discussed Dirty Dozen Versus Clean Fifteen. Discussed healthy supplements like fish oil, Tumeric, Curcumin, Melatonin, Resveratrol, Probiotics, Vitamin-D, Alpha-Lipoic acid, Vitamin-D and coconut oil. 2. It is important to exercise regularly. Is a good habit to walk at least 30-45 minutes a day. Gentle weightlifting with standard precautions to protect the back. Finding activity like cycling or hiking and get into the habit of engaging in it. Stretching before and after the exercises important. It is also important to contact me if there are any problems like shortness of breath, chest pain, back pain and joint or muscle pain associated with the exercise. 3. Discussed age appropriate screening guidelines. Colonoscopy needs to start at age 50 with stool for occult blood as appropriate. There is a new test that can test for genetic abnormalities in the stool sample. This would not replace a colonoscopy but could be used as a screening tool for patients who do not want a colonoscopy. We discussed the importance of early detection of colon cancer. 4. Discussed current PSA screening. PSA screening can be done in most patients between age 50 and 65. However early detection of prostate cancer needs to carefully be balanced with complications with treatment. These include incontinence, impotence etc. Each patient should decide if they would like to have this test. 5. Discussed safe driving and no use of smart phone while driving 6. Age-appropriate immunizations were discussed. A tetanus booster is needed every 10 years. Flu vaccine is recommended every year just before the start of the flu season. Shingles vaccine is recommended after age 50 but not all insurances cover it. Pneumonia vaccine is given after age 65 unless there are certain comorbidities for which it is started earlier. 7. Diagnostic labs were discussed. These could include CBC CMP and lipids with fasting blood glucose and insulin levels. Vitamin D and hemoglobin A1c testing might be appropriate. 11/30/2024 Encounter for screening examination for sexually transmitted disease (ICD-10 - Z11.3) #Annual physical. Actively working on weight reduction and is being followed in our weight management program. Continue healthy diet and regular exercise. Due for dental exam which he will schedule. Otherwise up-to-date on routine screenings and immunizations. Will get updated labs today follow-up pending results. Care proxy completed today. PHQ-9 12/25. Audit . Tetanus vaccine UTD at work last week. #STD screening. Asymptomatic however currently sexually active and willing to do routine screenings. Will follow-up pending results. Patient seen and examined. Comprehensive discussion was done on the following. 1. Nutrition: It is important to follow a healthy diet based on lots of vegetables and legumes and good fat. Avoid processed food and processed carbohydrates. Learn to prepare your own meals. Learn to read labels and avoid high fructose corn syrup, processed chemicals added to increase shelf life and preprepared meals. Avoid fast foods. Learn to eat slowly and plan meals for a week. Try to count calories and be mindful off daily calorie intake. Get into the habit of keeping an eye on your weight by using an appropriate scale. Learn to log exercise and discussed fitness Apps like [employer] which can help keep log off calories taken versus calories burned. Local food should be preferred. Discussed Dirty Dozen Versus Clean Fifteen. Discussed healthy supplements like fish oil, Tumeric, Curcumin, Melatonin, Resveratrol, Probiotics, Vitamin-D, Alpha-Lipoic acid, Vitamin-D and coconut oil. 2. It is important to exercise regularly. Is a good habit to walk at least 30-45 minutes a day. Gentle weightlifting with standard precautions to protect the back. Finding activity like cycling or hiking and get into the habit of engaging in it. Stretching before and after the exercises important. It is also important to contact me if there are any problems like shortness of breath, chest pain, back pain and joint or muscle pain associated with the exercise. 3. Discussed age appropriate screening guidelines. Colonoscopy needs to start at age 50 with stool for occult blood as appropriate. There is a new test that can test for genetic abnormalities in the stool sample. This would not replace a colonoscopy but could be used as a screening tool for patients who do not want a colonoscopy. We discussed the importance of early detection of colon cancer. 4. Discussed current PSA screening. PSA screening can be done in most patients between age 50 and 65. However early detection of prostate cancer needs to carefully be balanced with complications with treatment. These include incontinence, impotence etc. Each patient should decide if they would like to have this test. 5. Discussed safe driving and no use of smart phone while driving 6. Age-appropriate immunizations were discussed. A tetanus booster is needed every 10 years. Flu vaccine is recommended every year just before the start of the flu season. Shingles vaccine is recommended after age 50 but not all insurances cover it. Pneumonia vaccine is given after age 65 unless there are certain comorbidities for which it is started earlier. 7. Diagnostic labs were discussed. These could include CBC CMP and lipids with fasting blood glucose and insulin levels. Vitamin D and hemoglobin A1c testing might be appropriate. 10/05/2024 Morbid (severe) obesity due to excess calories (ICD-10 - E66.01) #Morbid obesity. 10/05/24: 351.9 pounds, BMI 42.8. Updated Seca scale reviewed in detail with patient. Weight is up 7 pounds since last visit however fat mass is up 1-1/2 pounds and muscle mass is up 3 pounds. Waist circumference is down three quarters of an inch and visceral adipose tissue is down from 7.2-6.7. He has just transition to the Zepbound. Will submit for Zepbound 5 mg. Continue consistent protein intake and regular exercise. Needs updated labs. Will follow-up in 1 month sooner with any concerns. The patient will continue exercise regimen with an emphasis on improving/increasing steps to at least 6,000-10,000 steps per day. Increasing cardio and strength training exercises as tolerated to improve weight loss and work on building muscle mass. Patient is committed to smarter eating with calorie counting and mindful eating. Limiting processed foods and carbohydrates and increasing leafy greens and lean proteins as well as fruits into their diet. Patient was counseled on the importance of eating local, organic food when possible. Patient has been counseled regarding effects of GLP/GIP-1 agonists and other FDA approved weight loss medications with regards to a multifactorial approach of weight loss as mentioned above and that the medication alone will not be sufficient to meet patients goals. We discussed holistic medication approach with emphasis on lifestyle modification. Discussed obesity as it increases risk of diabetes, cardiovascular disease, and/or organ damage. We spent a lot of time discussing the relationship between food, exercise, sleep, mental health, and obesity. We discussed the importance of having SECAs done every visit and having accountability done during these visits. That the scale is done to monitor not only weight loss but the body composition during medication management and healthy lifestyle changes. We discussed that if the patient is unable at times to financially afford this scale that we would rather waive the fee and have the scale done than have the patient not have the scale obtained. Will follow up with the patient in 4 weeks time to monitor weight loss. Total time was 30 min, greater than 50 % of time was spent on care coordination. #HTN. BP at goal. #VItamin D deficiency- 18 on previous labs. due for labs. #Hyperlipidemia- f/u labs. Case discussed with collaborating physician Claude Jain who reviewed the assessment and plan. Chart, medications, labs, vital signs reviewed. Dictation was accomplished with the use of [employer] voice recognition software, prone to medical misidentifications and grammatical errors. This is unintentional and the practitioner does try to identify and correct these, but some could still be present. Please do not hesitate to contact practitioner for clarification. All questions answered to patients satisfaction. Patient verbalized understanding of diagnosis and treatments explained. To call sooner prior to next visit it any questions/concerns arise. 10/05/2024 Body mass index [BMI] 40.0-44.9, adult (ICD-10 - Z68.41) #Morbid obesity. 10/05/24: 351.9 pounds, BMI 42.8. Updated Seca scale reviewed in detail with patient. Weight is up 7 pounds since last visit however fat mass is up 1-1/2 pounds and muscle mass is up 3 pounds. Waist circumference is down three quarters of an inch and visceral adipose tissue is down from 7.2-6.7. He has just transition to the Zepbound. Will submit for Zepbound 5 mg. Continue consistent protein intake and regular exercise. Needs updated labs. Will follow-up in 1 month sooner with any concerns. The patient will continue exercise regimen with an emphasis on improving/increasing steps to at least 6,000-10,000 steps per day. Increasing cardio and strength training exercises as tolerated to improve weight loss and work on building muscle mass. Patient is committed to smarter eating with calorie counting and mindful eating. Limiting processed foods and carbohydrates and increasing leafy greens and lean proteins as well as fruits into their diet. Patient was counseled on the importance of eating local, organic food when possible. Patient has been counseled regarding effects of GLP/GIP-1 agonists and other FDA approved weight loss medications with regards to a multifactorial approach of weight loss as mentioned above and that the medication alone will not be sufficient to meet patients goals. We discussed holistic medication approach with emphasis on lifestyle modification. Discussed obesity as it increases risk of diabetes, cardiovascular disease, and/or organ damage. We spent a lot of time discussing the relationship between food, exercise, sleep, mental health, and obesity. We discussed the importance of having SECAs done every visit and having accountability done during these visits. That the scale is done to monitor not only weight loss but the body composition during medication management and healthy lifestyle changes. We discussed that if the patient is unable at times to financially afford this scale that we would rather waive the fee and have the scale done than have the patient not have the scale obtained. Will follow up with the patient in 4 weeks time to monitor weight loss. Total time was 30 min, greater than 50 % of time was spent on care coordination. #HTN. BP at goal. #VItamin D deficiency- 18 on previous labs. due for labs. #Hyperlipidemia- f/u labs. Case discussed with collaborating physician Claude Jain who reviewed the assessment and plan. Chart, medications, labs, vital signs reviewed. Dictation was accomplished with the use of [employer] voice recognition software, prone to medical misidentifications and grammatical errors. This is unintentional and the practitioner does try to identify and correct these, but some could still be present. Please do not hesitate to contact practitioner for clarification. All questions answered to patients satisfaction. Patient verbalized understanding of diagnosis and treatments explained. To call sooner prior to next visit it any questions/concerns arise. 09/07/2024 Morbid obesity (ICD-10 - E66.01) Julián is a 34-year-old male with a PMH of HTN, HLD that presents for weight management follow-up. Reviewed [facility] holistic and medical approach to weight loss with emphasis on lifestyle modification. 09/07/2024: Weight: 344, BMI: 40.7. SECA reviewed, reveals 1 pound of fat gain loss. Patient continues to have above average muscle mass. Patient remains interested in transitioning to Zepbound. Patient establish care with us in October 2023 at which time he weighed 392 pounds. He has since successfully lost 48 pounds successfully with use of Wegovy. However, weight loss has begun to plateau. Will send Rx for Zepbound 2.5 mg SC weekly. Patient would benefit from dual incretin therapy given BMI of 40 and history of elevated cholesterol. 07/20/24: 348.3, BMI 42.4. He has been on Wegovy 2.4 mg and tolerating it well. He has plateaued however he continues to lose fat mass and increased muscle mass. He is interested in switching to Zepbound. Unfortunately this was denied by his insurance but is willing to pay for it through [employer]. Will submit prescription to pharmacy. Reviewed risk benefits adverse effects of medication. Continue to work on protein intake, regular exercise and hydration. Will plan to follow-up again in 1 month. We did discuss he will need to be off all injectable medications for at least 2 weeks prior to any planned surgery. He will let us know when he has more details about surgical date. 06/22/24: 347.2 pounds, BMI 42.3. He has been on Wegovy 2.4 mg and tolerating it well. However he has plateaued and is not noticing benefit from the medication at this point. Appetite has increased. We did submit for Zepbound at last visit which was denied by his insurance. Encouraged him to call to appeal. He may also want to consider [employer] for Zepbound. He will let us know in the interim we will continue Wegovy for now. We did discuss option of considering adding on phentermine in the short-term for appetite suppression. He will keep me posted in regards to his decision on Zepbound. Continue to work on protein, hydration and regular exercise. MICC injection given today follow-up with me in 1 month sooner with any issues. 05/24/24: 345 pounds, BMI 42.0. He has been tolerating Wegovy 2.4 mg well. He has noticed a plateau in the past month. Appetite has increased and is noticing less benefit from the medication. Discussed potential options. Will try submitting for Zepbound 2.5 mg. Reviewed risk benefits adverse effects of medication. Demonstrated proper use with pen autoinjector. Unfortunately he is allergic to Wellbutrin therefore Contrave is not an option for add-on. We did discuss potential consideration of phentermine if Zepbound is not covered. Continue to work on dietary modifications and exercise as tolerated. Follow-up in 4 weeks sooner with any concerns. Will add TISH injections today. 03/30/24: 352.4, BMI 42.9. He is doing fantastic on Wegovy 2.4 mg. Down 40 pounds overall. Will continue current regimen. Continue regular exercise and protein intake. Will get updated labs and review at follow-up visit. Follow-up in 4 to 6 weeks sooner with any concerns. 02/09/24: 375.2 lbs, BMI 45.7. Continue compounded semaglutide 2 mg. Awaiting approval for Wegovy. Discussed continued protein intake, hydration and regular exercise. Follow-up in 1 month sooner with any concerns. Will continue weekly injections of compounded semaglutide here in the office at 2 mg while awaiting approval. #HTN: BP initially elevated with systolic pressure in the 180s. Repeat BP 142/88. Upon chart review BP consistently elevated with systolic pressures in the 140s and diastolic pressures in the high 80s. Patient encouraged to follow-up with his primary care provider to address this. All questions answered to the patient's satisfaction. Patient demonstrates understanding of diagnosis and treatments discussed. Follow-up in 1 month, sooner should any questions/concerns arise. Case discussed with collaborating physician Felix Jain who has reviewed the assessment/plan. Chart, medications, labs, and vital signs reviewed. Dictation completed with the use of [employer] voice recognition software, prone to medical misidentifications and grammatical errors. All errors are unintentional. Although the practitioner does try to identify and correct errors, some may be present. Please do not hesitate to contact the practitioner for clarification. Total time spent was 30 minutes with >50% on coordination of care and patient education. 09/07/2024 BMI 40.0-44.9, adult (ICD-10 - Z68.41) Julián is a 34-year-old male with a PMH of HTN, HLD that presents for weight management follow-up. Reviewed [facility] holistic and medical approach to weight loss with emphasis on lifestyle modification. 09/07/2024: Weight: 344, BMI: 40.7. SECA reviewed, reveals 1 pound of fat gain loss. Patient continues to have above average muscle mass. Patient remains interested in transitioning to Zepbound. Patient establish care with us in October 2023 at which time he weighed 392 pounds. He has since successfully lost 48 pounds successfully with use of Wegovy. However, weight loss has begun to plateau. Will send Rx for Zepbound 2.5 mg SC weekly. Patient would benefit from dual incretin therapy given BMI of 40 and history of elevated cholesterol. 07/20/24: 348.3, BMI 42.4. He has been on Wegovy 2.4 mg and tolerating it well. He has plateaued however he continues to lose fat mass and increased muscle mass. He is interested in switching to Zepbound. Unfortunately this was denied by his insurance but is willing to pay for it through [employer]. Will submit prescription to pharmacy. Reviewed risk benefits adverse effects of medication. Continue to work on protein intake, regular exercise and hydration. Will plan to follow-up again in 1 month. We did discuss he will need to be off all injectable medications for at least 2 weeks prior to any planned surgery. He will let us know when he has more details about surgical date. 06/22/24: 347.2 pounds, BMI 42.3. He has been on Wegovy 2.4 mg and tolerating it well. However he has plateaued and is not noticing benefit from the medication at this point. Appetite has increased. We did submit for Zepbound at last visit which was denied by his insurance. Encouraged him to call to appeal. He may also want to consider [employer] [employer] for Zepbound. He will let us know in the interim we will continue Wegovy for now. We did discuss option of considering adding on phentermine in the short-term for appetite suppression. He will keep me posted in regards to his decision on Zepbound. Continue to work on protein, hydration and regular exercise. MICC injection given today follow-up with me in 1 month sooner with any issues. 05/24/24: 345 pounds, BMI 42.0. He has been tolerating Wegovy 2.4 mg well. He has noticed a plateau in the past month. Appetite has increased and is noticing less benefit from the medication. Discussed potential options. Will try submitting for Zepbound 2.5 mg. Reviewed risk benefits adverse effects of medication. Demonstrated proper use with pen autoinjector. Unfortunately he is allergic to Wellbutrin therefore Contrave is not an option for add-on. We did discuss potential consideration of phentermine if Zepbound is not covered. Continue to work on dietary modifications and exercise as tolerated. Follow-up in 4 weeks sooner with any concerns. Will add TISH injections today. 03/30/24: 352.4, BMI 42.9. He is doing fantastic on Wegovy 2.4 mg. Down 40 pounds overall. Will continue current regimen. Continue regular exercise and protein intake. Will get updated labs and review at follow-up visit. Follow-up in 4 to 6 weeks sooner with any concerns. 02/09/24: 375.2 lbs, BMI 45.7. Continue compounded semaglutide 2 mg. Awaiting approval for Wegovy. Discussed continued protein intake, hydration and regular exercise. Follow-up in 1 month sooner with any concerns. Will continue weekly injections of compounded semaglutide here in the office at 2 mg while awaiting approval. #HTN: BP initially elevated with systolic pressure in the 180s. Repeat BP 142/88. Upon chart review BP consistently elevated with systolic pressures in the 140s and diastolic pressures in the high 80s. Patient encouraged to follow-up with his primary care provider to address this. All questions answered to the patient's satisfaction. Patient demonstrates understanding of diagnosis and treatments discussed. Follow-up in 1 month, sooner should any questions/concerns arise. Case discussed with collaborating physician Felix Jain who has reviewed the assessment/plan. Chart, medications, labs, and vital signs reviewed. Dictation completed with the use of [employer] voice recognition software, prone to medical misidentifications and grammatical errors. All errors are unintentional. Although the practitioner does try to identify and correct errors, some may be present. Please do not hesitate to contact the practitioner for clarification. Total time spent was 30 minutes with >50% on coordination of care and patient education. 11/01/2024 Morbid (severe) obesity due to excess calories (ICD-10 - E66.01) #Morbid obesity. 11/01/24: 349.1 pounds, BMI 42.5. He is doing well on Zepbound but has not noticed significant appetite suppression at 5 mg dose. Will increase to 7.5 mg. Reviewed risk benefits adverse effects of medication. Reviewed updated Seca scale with patient. Continue consistent exercise protein intake and hydration. Follow-up in 1 month sooner with any concerns. The patient will continue exercise regimen with an emphasis on improving/increasing steps to at least 6,000-10,000 steps per day. Increasing cardio and strength training exercises as tolerated to improve weight loss and work on building muscle mass. Patient is committed to smarter eating with calorie counting and mindful eating. Limiting processed foods and carbohydrates and increasing leafy greens and lean proteins as well as fruits into their diet. Patient was counseled on the importance of eating local, organic food when possible. Patient has been counseled regarding effects of GLP/GIP-1 agonists and other FDA approved weight loss medications with regards to a multifactorial approach of weight loss as mentioned above and that the medication alone will not be sufficient to meet patients goals. We discussed holistic medication approach with emphasis on lifestyle modification. Discussed obesity as it increases risk of diabetes, cardiovascular disease, and/or organ damage. We spent a lot of time discussing the relationship between food, exercise, sleep, mental health, and obesity. We discussed the importance of having SECAs done every visit and having accountability done during these visits. That the scale is done to monitor not only weight loss but the body composition during medication management and healthy lifestyle changes. We discussed that if the patient is unable at times to financially afford this scale that we would rather waive the fee and have the scale done than have the patient not have the scale obtained. Will follow up with the patient in 4 weeks time to monitor weight loss. Total time was 30 min, greater than 50 % of time was spent on care coordination. #HTN. BP mildly elevated today. Home reading have been well controlled. #Hyperlipidemia- Needs updated labs. Case discussed with collaborating physician Claude Jain who reviewed the assessment and plan. Chart, medications, labs, vital signs reviewed. Dictation was accomplished with the use of [employer] voice recognition software, prone to medical misidentifications and grammatical errors. This is unintentional and the practitioner does try to identify and correct these, but some could still be present. Please do not hesitate to contact practitioner for clarification. All questions answered to patients satisfaction. Patient verbalized understanding of diagnosis and treatments explained. To call sooner prior to next visit it any questions/concerns arise. 11/01/2024 Body mass index [BMI] 40.0-44.9, adult (ICD-10 - Z68.41) #Morbid obesity. 11/01/24: 349.1 pounds, BMI 42.5. He is doing well on Zepbound but has not noticed significant appetite suppression at 5 mg dose. Will increase to 7.5 mg. Reviewed risk benefits adverse effects of medication. Reviewed updated Seca scale with patient. Continue consistent exercise protein intake and hydration. Follow-up in 1 month sooner with any concerns. The patient will continue exercise regimen with an emphasis on improving/increasing steps to at least 6,000-10,000 steps per day. Increasing cardio and strength training exercises as tolerated to improve weight loss and work on building muscle mass. Patient is committed to smarter eating with calorie counting and mindful eating. Limiting processed foods and carbohydrates and increasing leafy greens and lean proteins as well as fruits into their diet. Patient was counseled on the importance of eating local, organic food when possible. Patient has been counseled regarding effects of GLP/GIP-1 agonists and other FDA approved weight loss medications with regards to a multifactorial approach of weight loss as mentioned above and that the medication alone will not be sufficient to meet patients goals. We discussed holistic medication approach with emphasis on lifestyle modification. Discussed obesity as it increases risk of diabetes, cardiovascular disease, and/or organ damage. We spent a lot of time discussing the relationship between food, exercise, sleep, mental health, and obesity. We discussed the importance of having SECAs done every visit and having accountability done during these visits. That the scale is done to monitor not only weight loss but the body composition during medication management and healthy lifestyle changes. We discussed that if the patient is unable at times to financially afford this scale that we would rather waive the fee and have the scale done than have the patient not have the scale obtained. Will follow up with the patient in 4 weeks time to monitor weight loss. Total time was 30 min, greater than 50 % of time was spent on care coordination. #HTN. BP mildly elevated today. Home reading have been well controlled. #Hyperlipidemia- Needs updated labs. Case discussed with collaborating physician Claude Jain who reviewed the assessment and plan. Chart, medications, labs, vital signs reviewed. Dictation was accomplished with the use of [employer] voice recognition software, prone to medical misidentifications and grammatical errors. This is unintentional and the practitioner does try to identify and correct these, but some could still be present. Please do not hesitate to contact practitioner for clarification. All questions answered to patients satisfaction. Patient verbalized understanding of diagnosis and treatments explained. To call sooner prior to next visit it any questions/concerns arise. 11/01/2024 Essential hypertension (ICD-10 - I10) #Morbid obesity. 11/01/24: 349.1 pounds, BMI 42.5. He is doing well on Zepbound but has not noticed significant appetite suppression at 5 mg dose. Will increase to 7.5 mg. Reviewed risk benefits adverse effects of medication. Reviewed updated Seca scale with patient. Continue consistent exercise protein intake and hydration. Follow-up in 1 month sooner with any concerns. The patient will continue exercise regimen with an emphasis on improving/increasing steps to at least 6,000-10,000 steps per day. Increasing cardio and strength training exercises as tolerated to improve weight loss and work on building muscle mass. Patient is committed to smarter eating with calorie counting and mindful eating. Limiting processed foods and carbohydrates and increasing leafy greens and lean proteins as well as fruits into their diet. Patient was counseled on the importance of eating local, organic food when possible. Patient has been counseled regarding effects of GLP/GIP-1 agonists and other FDA approved weight loss medications with regards to a multifactorial approach of weight loss as mentioned above and that the medication alone will not be sufficient to meet patients goals. We discussed holistic medication approach with emphasis on lifestyle modification. Discussed obesity as it increases risk of diabetes, cardiovascular disease, and/or organ damage. We spent a lot of time discussing the relationship between food, exercise, sleep, mental health, and obesity. We discussed the importance of having SECAs done every visit and having accountability done during these visits. That the scale is done to monitor not only weight loss but the body composition during medication management and healthy lifestyle changes. We discussed that if the patient is unable at times to financially afford this scale that we would rather waive the fee and have the scale done than have the patient not have the scale obtained. Will follow up with the patient in 4 weeks time to monitor weight loss. Total time was 30 min, greater than 50 % of time was spent on care coordination. #HTN. BP mildly elevated today. Home reading have been well controlled. #Hyperlipidemia- Needs updated labs. Case discussed with collaborating physician Claude Jain who reviewed the assessment and plan. Chart, medications, labs, vital signs reviewed. Dictation was accomplished with the use of [employer] voice recognition software, prone to medical misidentifications and grammatical errors. This is unintentional and the practitioner does try to identify and correct these, but some could still be present. Please do not hesitate to contact practitioner for clarification. All questions answered to patients satisfaction. Patient verbalized understanding of diagnosis and treatments explained. To call sooner prior to next visit it any questions/concerns arise. 09/07/2024 Hyperlipidemia, unspecified hyperlipidemia type (ICD-10 - E78.5) Julián is a 34-year-old male with a PMH of HTN, HLD that presents for weight management follow-up. Reviewed [facility] holistic and medical approach to weight loss with emphasis on lifestyle modification. 09/07/2024: Weight: 344, BMI: 40.7. SECA reviewed, reveals 1 pound of fat gain loss. Patient continues to have above average muscle mass. Patient remains interested in transitioning to Zepbound. Patient establish care with us in October 2023 at which time he weighed 392 pounds. He has since successfully lost 48 pounds successfully with use of Wegovy. However, weight loss has begun to plateau. Will send Rx for Zepbound 2.5 mg SC weekly. Patient would benefit from dual incretin therapy given BMI of 40 and history of elevated cholesterol. 07/20/24: 348.3, BMI 42.4. He has been on Wegovy 2.4 mg and tolerating it well. He has plateaued however he continues to lose fat mass and increased muscle mass. He is interested in switching to Zepbound. Unfortunately this was denied by his insurance but is willing to pay for it through [employer]. Will submit prescription to pharmacy. Reviewed risk benefits adverse effects of medication. Continue to work on protein intake, regular exercise and hydration. Will plan to follow-up again in 1 month. We did discuss he will need to be off all injectable medications for at least 2 weeks prior to any planned surgery. He will let us know when he has more details about surgical date. 06/22/24: 347.2 pounds, BMI 42.3. He has been on Wegovy 2.4 mg and tolerating it well. However he has plateaued and is not noticing benefit from the medication at this point. Appetite has increased. We did submit for Zepbound at last visit which was denied by his insurance. Encouraged him to call to appeal. He may also want to consider [employer] for Zepbound. He will let us know in the interim we will continue Wegovy for now. We did discuss option of considering adding on phentermine in the short-term for appetite suppression. He will keep me posted in regards to his decision on Zepbound. Continue to work on protein, hydration and regular exercise. MICC injection given today follow-up with me in 1 month sooner with any issues. 05/24/24: 345 pounds, BMI 42.0. He has been tolerating Wegovy 2.4 mg well. He has noticed a plateau in the past month. Appetite has increased and is noticing less benefit from the medication. Discussed potential options. Will try submitting for Zepbound 2.5 mg. Reviewed risk benefits adverse effects of medication. Demonstrated proper use with pen autoinjector. Unfortunately he is allergic to Wellbutrin therefore Contrave is not an option for add-on. We did discuss potential consideration of phentermine if Zepbound is not covered. Continue to work on dietary modifications and exercise as tolerated. Follow-up in 4 weeks sooner with any concerns. Will add TISH injections today. 03/30/24: 352.4, BMI 42.9. He is doing fantastic on Wegovy 2.4 mg. Down 40 pounds overall. Will continue current regimen. Continue regular exercise and protein intake. Will get updated labs and review at follow-up visit. Follow-up in 4 to 6 weeks sooner with any concerns. 02/09/24: 375.2 lbs, BMI 45.7. Continue compounded semaglutide 2 mg. Awaiting approval for Wegovy. Discussed continued protein intake, hydration and regular exercise. Follow-up in 1 month sooner with any concerns. Will continue weekly injections of compounded semaglutide here in the office at 2 mg while awaiting approval. #HTN: BP initially elevated with systolic pressure in the 180s. Repeat BP 142/88. Upon chart review BP consistently elevated with systolic pressures in the 140s and diastolic pressures in the high 80s. Patient encouraged to follow-up with his primary care provider to address this. All questions answered to the patient's satisfaction. Patient demonstrates understanding of diagnosis and treatments discussed. Follow-up in 1 month, sooner should any questions/concerns arise. Case discussed with collaborating physician Felix Jain who has reviewed the assessment/plan. Chart, medications, labs, and vital signs reviewed. Dictation completed with the use of [employer] voice recognition software, prone to medical misidentifications and grammatical errors. All errors are unintentional. Although the practitioner does try to identify and correct errors, some may be present. Please do not hesitate to contact the practitioner for clarification. Total time spent was 30 minutes with >50% on coordination of care and patient education. 10/05/2024 Essential hypertension (ICD-10 - I10) #Morbid obesity. 10/05/24: 351.9 pounds, BMI 42.8. Updated Seca scale reviewed in detail with patient. Weight is up 7 pounds since last visit however fat mass is up 1-1/2 pounds and muscle mass is up 3 pounds. Waist circumference is down three quarters of an inch and visceral adipose tissue is down from 7.2-6.7. He has just transition to the Zepbound. Will submit for Zepbound 5 mg. Continue consistent protein intake and regular exercise. Needs updated labs. Will follow-up in 1 month sooner with any concerns. The patient will continue exercise regimen with an emphasis on improving/increasing steps to at least 6,000-10,000 steps per day. Increasing cardio and strength training exercises as tolerated to improve weight loss and work on building muscle mass. Patient is committed to smarter eating with calorie counting and mindful eating. Limiting processed foods and carbohydrates and increasing leafy greens and lean proteins as well as fruits into their diet. Patient was counseled on the importance of eating local, organic food when possible. Patient has been counseled regarding effects of GLP/GIP-1 agonists and other FDA approved weight loss medications with regards to a multifactorial approach of weight loss as mentioned above and that the medication alone will not be sufficient to meet patients goals. We discussed holistic medication approach with emphasis on lifestyle modification. Discussed obesity as it increases risk of diabetes, cardiovascular disease, and/or organ damage. We spent a lot of time discussing the relationship between food, exercise, sleep, mental health, and obesity. We discussed the importance of having SECAs done every visit and having accountability done during these visits. That the scale is done to monitor not only weight loss but the body composition during medication management and healthy lifestyle changes. We discussed that if the patient is unable at times to financially afford this scale that we would rather waive the fee and have the scale done than have the patient not have the scale obtained. Will follow up with the patient in 4 weeks time to monitor weight loss. Total time was 30 min, greater than 50 % of time was spent on care coordination. #HTN. BP at goal. #VItamin D deficiency- 18 on previous labs. due for labs. #Hyperlipidemia- f/u labs. Case discussed with collaborating physician Claude Jain who reviewed the assessment and plan. Chart, medications, labs, vital signs reviewed. Dictation was accomplished with the use of [employer] voice recognition software, prone to medical misidentifications and grammatical errors. This is unintentional and the practitioner does try to identify and correct these, but some could still be present. Please do not hesitate to contact practitioner for clarification. All questions answered to patients satisfaction. Patient verbalized understanding of diagnosis and treatments explained. To call sooner prior to next visit it any questions/concerns arise. 11/30/2024 Alcohol screening (ICD-10 - Z13.39) #Annual physical. Actively working on weight reduction and is being followed in our weight management program. Continue healthy diet and regular exercise. Due for dental exam which he will schedule. Otherwise up-to-date on routine screenings and immunizations. Will get updated labs today follow-up pending results. Care proxy completed today. PHQ-9 12/25. Audit . Tetanus vaccine UTD at work last week. #STD screening. Asymptomatic however currently sexually active and willing to do routine screenings. Will follow-up pending results. Patient seen and examined. Comprehensive discussion was done on the following. 1. Nutrition: It is important to follow a healthy diet based on lots of vegetables and legumes and good fat. Avoid processed food and processed carbohydrates. Learn to prepare your own meals. Learn to read labels and avoid high fructose corn syrup, processed chemicals added to increase shelf life and preprepared meals. Avoid fast foods. Learn to eat slowly and plan meals for a week. Try to count calories and be mindful off daily calorie intake. Get into the habit of keeping an eye on your weight by using an appropriate scale. Learn to log exercise and discussed fitness Apps like [employer] which can help keep log off calories taken versus calories burned. Local food should be preferred. Discussed D[employer]zen Versus Clean Fifteen. Discussed healthy supplements like fish oil, Tumeric, Curcumin, Melatonin, Resveratrol, Probiotics, Vitamin-D, Alpha-Lipoic acid, Vitamin-D and coconut oil. 2. It is important to exercise regularly. Is a good habit to walk at least 30-45 minutes a day. Gentle weightlifting with standard precautions to protect the back. Finding activity like cycling or hiking and get into the habit of engaging in it. Stretching before and after the exercises important. It is also important to contact me if there are any problems like shortness of breath, chest pain, back pain and joint or muscle pain associated with the exercise. 3. Discussed age appropriate screening guidelines. Colonoscopy needs to start at age 50 with stool for occult blood as appropriate. There is a new test that can test for genetic abnormalities in the stool sample. This would not replace a colonoscopy but could be used as a screening tool for patients who do not want a colonoscopy. We discussed the importance of early detection of colon cancer. 4. Discussed current PSA screening. PSA screening can be done in most patients between age 50 and 65. However early detection of prostate cancer needs to carefully be balanced with complications with treatment. These include incontinence, impotence etc. Each patient should decide if they would like to have this test. 5. Discussed safe driving and no use of smart phone while driving 6. Age-appropriate immunizations were discussed. A tetanus booster is needed every 10 years. Flu vaccine is recommended every year just before the start of the flu season. Shingles vaccine is recommended after age 50 but not all insurances cover it. Pneumonia vaccine is given after age 65 unless there are certain comorbidities for which it is started earlier. 7. Diagnostic labs were discussed. These could include CBC CMP and lipids with fasting blood glucose and insulin levels. Vitamin D and hemoglobin A1c testing might be appropriate. 12/06/2024 Essential hypertension (ICD-10 - I10) #Morbid obesity. 12/06/24: 346 pounds, BMI 42.1. He is doing well on Zepbound but has noticed decreased appetite suppression at 7.5 mg dose. Will increase to 10 mg on next refill. MICC given today. Reviewed risk benefits adverse effects of medication. Reviewed updated Seca scale with patient. Continue consistent exercise protein intake and hydration. Resume regular exercise as tolerated. Follow-up in 1 month sooner with any concerns. #HTN. BP improved today. Will monitor. #HYperlipidemia. Updated labs reviewed. LDL improved, TGs mildly elevated, cut back on carbs/sugar in diet. The patient will continue exercise regimen with an emphasis on improving/increasing steps to at least 6,000-10,000 steps per day. Increasing cardio and strength training exercises as tolerated to improve weight loss and work on building muscle mass. Patient is committed to smarter eating with calorie counting and mindful eating. Limiting processed foods and carbohydrates and increasing leafy greens and lean proteins as well as fruits into their diet. Patient was counseled on the importance of eating local, organic food when possible. Patient has been counseled regarding effects of GLP/GIP-1 agonists and other FDA approved weight loss medications with regards to a multifactorial approach of weight loss as mentioned above and that the medication alone will not be sufficient to meet patients goals. We discussed holistic medication approach with emphasis on lifestyle modification. Discussed obesity as it increases risk of diabetes, cardiovascular disease, and/or organ damage. We spent a lot of time discussing the relationship between food, exercise, sleep, mental health, and obesity. We discussed the importance of having SECAs done every visit and having accountability done during these visits. That the scale is done to monitor not only weight loss but the body composition during medication management and healthy lifestyle changes. We discussed that if the patient is unable at times to financially afford this scale that we would rather waive the fee and have the scale done than have the patient not have the scale obtained. Will follow up with the patient in 4 weeks time to monitor weight loss. Total time was 30 min, greater than 50 % of time was spent on care coordination. #HTN. BP improved. #Hyperlipidemia- Reviewed updated labs, discussed dietary modifications and exercise. Case discussed with collaborating physician Claude Jain who reviewed the assessment and plan. Chart, medications, labs, vital signs reviewed. Dictation was accomplished with the use of [employer] voice recognition software, prone to medical misidentifications and grammatical errors. This is unintentional and the practitioner does try to identify and correct these, but some could still be present. Please do not hesitate to contact practitioner for clarification. All questions answered to patients satisfaction. Patient verbalized understanding of diagnosis and treatments explained. To call sooner prior to next visit it any questions/concerns arise. 01/11/2025 Essential hypertension (ICD-10 - I10) #Morbid obesity. 01/11/25: 332.7 pounds, BMI 40.5. He is doing fantastic on Zepbound now on 10 mg weekly. He is down an additional 12 pounds and 18 pounds of fat mass. Muscle mass is also up 4 pounds. Will continue current regimen and continue to work on consistent protein intake and regular exercise. TISH injection given today as well. Follow-up with me in 1 month sooner with any concerns. #HTN. BP improved today. Will monitor. #Hyperlipidemia. LDL improved, TGs mildly elevated, cut back on carbs/sugar in diet. The patient will continue exercise regimen with an emphasis on improving/increasing steps to at least 6,000-10,000 steps per day. Increasing cardio and strength training exercises as tolerated to improve weight loss and work on building muscle mass. Patient is committed to smarter eating with calorie counting and mindful eating. Limiting processed foods and carbohydrates and increasing leafy greens and lean proteins as well as fruits into their diet. Patient was counseled on the importance of eating local, organic food when possible. Patient has been counseled regarding effects of GLP/GIP-1 agonists and other FDA approved weight loss medications with regards to a multifactorial approach of weight loss as mentioned above and that the medication alone will not be sufficient to meet patients goals. We discussed holistic medication approach with emphasis on lifestyle modification. Discussed obesity as it increases risk of diabetes, cardiovascular disease, and/or organ damage. We spent a lot of time discussing the relationship between food, exercise, sleep, mental health, and obesity. We discussed the importance of having SECAs done every visit and having accountability done during these visits. That the scale is done to monitor not only weight loss but the body composition during medication management and healthy lifestyle changes. We discussed that if the patient is unable at times to financially afford this scale that we would rather waive the fee and have the scale done than have the patient not have the scale obtained. Will follow up with the patient in 4 weeks time to monitor weight loss. Total time was 30 min, greater than 50 % of time was spent on care coordination. Case discussed with collaborating physician Claude Jain who reviewed the assessment and plan. Chart, medications, labs, vital signs reviewed. Dictation was accomplished with the use of [employer] voice recognition software, prone to medical misidentifications and grammatical errors. This is unintentional and the practitioner does try to identify and correct these, but some could still be present. Please do not hesitate to contact practitioner for clarification. All questions answered to patients satisfaction. Patient verbalized understanding of diagnosis and treatments explained. To call sooner prior to next visit it any questions/concerns arise. 2025 Essential hypertension (ICD-10 - I10) #Morbid obesity. 02/22/25: 327.7 pounds, BMI 39.9. He is doing fantastic on Zepbound 10 mg. Will continue current dose. Continue TISH injections monthly. Continue increased protein intake and consistent exercise. Follow-up with me in 4 to 6 weeks sooner with any concerns. #HTN. At goal. Will monitor. #Hyperlipidemia. Improving. Monitor labs. The patient will continue exercise regimen with an emphasis on improving/increasing steps to at least 6,000-10,000 steps per day. Increasing cardio and strength training exercises as tolerated to improve weight loss and work on building muscle mass. Patient is committed to smarter eating with calorie counting and mindful eating. Limiting processed foods and carbohydrates and increasing leafy greens and lean proteins as well as fruits into their diet. Patient was counseled on the importance of eating local, organic food when possible. Patient has been counseled regarding effects of GLP/GIP-1 agonists and other FDA approved weight loss medications with regards to a multifactorial approach of weight loss as mentioned above and that the medication alone will not be sufficient to meet patients goals. We discussed holistic medication approach with emphasis on lifestyle modification. Discussed obesity as it increases risk of diabetes, cardiovascular disease, and/or organ damage. We spent a lot of time discussing the relationship between food, exercise, sleep, mental health, and obesity. We discussed the importance of having SECAs done every visit and having accountability done during these visits. That the scale is done to monitor not only weight loss but the body composition during medication management and healthy lifestyle changes. We discussed that if the patient is unable at times to financially afford this scale that we would rather waive the fee and have the scale done than have the patient not have the scale obtained. Will follow up with the patient in 4 weeks time to monitor weight loss. Total time was 30 min, greater than 50 % of time was spent on care coordination. Case discussed with collaborating physician Claude Jain who reviewed the assessment and plan. Chart, medications, labs, vital signs reviewed. Dictation was accomplished with the use of [employer] voice recognition software, prone to medical misidentifications and grammatical errors. This is unintentional and the practitioner does try to identify and correct these, but some could still be present. Please do not hesitate to contact practitioner for clarification. All questions answered to patients satisfaction. Patient verbalized understanding of diagnosis and treatments explained. To call sooner prior to next visit it any questions/concerns arise. 04/05/2025 Essential hypertension (ICD-10 - I10) #Morbid obesity. 04/05/25: 330.5 pounds, BMI 40.2 He is doing fantastic on Zepbound. Currently on 10 mg dose. Has noticed plateau over the last month or 2. Will increase to 12.5 mg weekly on next refill. Continue to work on consistent protein intake, hydration and regular exercise. Follow-up in 4 to 6 weeks sooner with any concerns. #HTN. At goal. Will monitor. #Hyperlipidemia. Improving. Monitor labs. The patient will continue exercise regimen with an emphasis on improving/increasing steps to at least 6,000-10,000 steps per day. Increasing cardio and strength training exercises as tolerated to improve weight loss and work on building muscle mass. Patient is committed to smarter eating with calorie counting and mindful eating. Limiting processed foods and carbohydrates and increasing leafy greens and lean proteins as well as fruits into their diet. Patient was counseled on the importance of eating local, organic food when possible. Patient has been counseled regarding effects of GLP/GIP-1 agonists and other FDA approved weight loss medications with regards to a multifactorial approach of weight loss as mentioned above and that the medication alone will not be sufficient to meet patients goals. We discussed holistic medication approach with emphasis on lifestyle modification. Discussed obesity as it increases risk of diabetes, cardiovascular disease, and/or organ damage. We spent a lot of time discussing the relationship between food, exercise, sleep, mental health, and obesity. We discussed the importance of having SECAs done every visit and having accountability done during these visits. That the scale is done to monitor not only weight loss but the body composition during medication management and healthy lifestyle changes. We discussed that if the patient is unable at times to financially afford this scale that we would rather waive the fee and have the scale done than have the patient not have the scale obtained. Will follow up with the patient in 4 weeks time to monitor weight loss. Total time was 30 min, greater than 50 % of time was spent on care coordination. Case discussed with collaborating physician Claude Jain who reviewed the assessment and plan. Chart, medications, labs, vital signs reviewed. Dictation was accomplished with the use of [employer] voice recognition software, prone to medical misidentifications and grammatical errors. This is unintentional and the practitioner does try to identify and correct these, but some could still be present. Please do not hesitate to contact practitioner for clarification. All questions answered to patients satisfaction. Patient verbalized understanding of diagnosis and treatments explained. To call sooner prior to next visit it any questions/concerns arise. 05/17/2025 Essential hypertension (ICD-10 - I10) #Morbid obesity. 05/17/25: 326.9 pounds, BMI 39.8. He is doing well on Zepbound 12.5 mg. Tolerating it well. Weight is down 3-1/2 pounds. Fat mass is down 7 pounds. Muscle mass is up. Will continue consistent lifestyle modifications including regular exercise and higher protein diet. Will plan to get updated labs at next visit. Follow-up in 4 to 6 weeks sooner with any concerns. #HTN. At goal. Will monitor. #Hyperlipidemia. Improving. Plan for updated labs at next visit. The patient will continue exercise regimen with an emphasis on improving/increasing steps to at least 6,000-10,000 steps per day. Increasing cardio and strength training exercises as tolerated to improve weight loss and work on building muscle mass. Patient is committed to smarter eating with calorie counting and mindful eating. Limiting processed foods and carbohydrates and increasing leafy greens and lean proteins as well as fruits into their diet. Patient was counseled on the importance of eating local, organic food when possible. Patient has been counseled regarding effects of GLP/GIP-1 agonists and other FDA approved weight loss medications with regards to a multifactorial approach of weight loss as mentioned above and that the medication alone will not be sufficient to meet patients goals. We discussed holistic medication approach with emphasis on lifestyle modification. Discussed obesity as it increases risk of diabetes, cardiovascular disease, and/or organ damage. We spent a lot of time discussing the relationship between food, exercise, sleep, mental health, and obesity. We discussed the importance of having SECAs done every visit and having accountability done during these visits. That the scale is done to monitor not only weight loss but the body composition during medication management and healthy lifestyle changes. We discussed that if the patient is unable at times to financially afford this scale that we would rather waive the fee and have the scale done than have the patient not have the scale obtained. Will follow up with the patient in 4 weeks time to monitor weight loss. Total time was 30 min, greater than 50 % of time was spent on care coordination. Case discussed with collaborating physician Claude Jain who reviewed the assessment and plan. Chart, medications, labs, vital signs reviewed. Dictation was accomplished with the use of [employer] voice recognition software, prone to medical misidentifications and grammatical errors. This is unintentional and the practitioner does try to identify and correct these, but some could still be present. Please do not hesitate to contact practitioner for clarification. All questions answered to patients satisfaction. Patient verbalized understanding of diagnosis and treatments explained. To call sooner prior to next visit it any questions/concerns arise. 06/21/2025 Essential hypertension (ICD-10 - I10) #Morbid obesity. 06/21/25: 324.4 pounds, BMI 39.5. He is doing well on Zepbound 12.5 mg. Tolerating it well. Weight is down 3-1/2 pounds. Fat mass is down 7 pounds. Muscle mass is up. Will continue consistent lifestyle modifications including regular exercise and higher protein diet. Will plan to get updated labs at next visit. Follow-up in 4 to 6 weeks sooner with any concerns. #HTN. At goal. Will monitor. #Hyperlipidemia. Improving. Plan for updated labs at next visit. The patient will continue exercise regimen with an emphasis on improving/increasing steps to at least 6,000-10,000 steps per day. Increasing cardio and strength training exercises as tolerated to improve weight loss and work on building muscle mass. Patient is committed to smarter eating with calorie counting and mindful eating. Limiting processed foods and carbohydrates and increasing leafy greens and lean proteins as well as fruits into their diet. Patient was counseled on the importance of eating local, organic food when possible. Patient has been counseled regarding effects of GLP/GIP-1 agonists and other FDA approved weight loss medications with regards to a multifactorial approach of weight loss as mentioned above and that the medication alone will not be sufficient to meet patients goals. We discussed holistic medication approach with emphasis on lifestyle modification. Discussed obesity as it increases risk of diabetes, cardiovascular disease, and/or organ damage. We spent a lot of time discussing the relationship between food, exercise, sleep, mental health, and obesity. We discussed the importance of having SECAs done every visit and having accountability done during these visits. That the scale is done to monitor not only weight loss but the body composition during medication management and healthy lifestyle changes. We discussed that if the patient is unable at times to financially afford this scale that we would rather waive the fee and have the scale done than have the patient not have the scale obtained. Will follow up with the patient in 4 weeks time to monitor weight loss. Total time was 30 min, greater than 50 % of time was spent on care coordination. Case discussed with collaborating physician Claude Jain who reviewed the assessment and plan. Chart, medications, labs, vital signs reviewed. Dictation was accomplished with the use of [employer] voice recognition software, prone to medical misidentifications and grammatical errors. This is unintentional and the practitioner does try to identify and correct these, but some could still be present. Please do not hesitate to contact practitioner for clarification. All questions answered to patients satisfaction. Patient verbalized understanding of diagnosis and treatments explained. To call sooner prior to next visit it any questions/concerns arise. 08/09/2025 Essential hypertension (ICD-10 - I10) #Morbid obesity. 321 pounds, BMI 39.1. He is doing fantastic on Zepbound 12.5 mg. Will continue current regimen. Continue consistent lifestyle modifications, healthy diet with focus on protein. Follow-up in 6 to 8 weeks sooner with any concerns. #HTN. At goal. Will monitor. #Hyperlipidemia. Improving. Plan for updated labs at next visit. The patient will continue exercise regimen with an emphasis on improving/increasing steps to at least 6,000-10,000 steps per day. Increasing cardio and strength training exercises as tolerated to improve weight loss and work on building muscle mass. Patient is committed to smarter eating with calorie counting and mindful eating. Limiting processed foods and carbohydrates and increasing leafy greens and lean proteins as well as fruits into their diet. Patient was counseled on the importance of eating local, organic food when possible. Patient has been counseled regarding effects of GLP/GIP-1 agonists and other FDA approved weight loss medications with regards to a multifactorial approach of weight loss as mentioned above and that the medication alone will not be sufficient to meet patients goals. We discussed holistic medication approach with emphasis on lifestyle modification. Discussed obesity as it increases risk of diabetes, cardiovascular disease, and/or organ damage. We spent a lot of time discussing the relationship between food, exercise, sleep, mental health, and obesity. We discussed the importance of having SECAs done every visit and having accountability done during these visits. That the scale is done to monitor not only weight loss but the body composition during medication management and healthy lifestyle changes. We discussed that if the patient is unable at times to financially afford this scale that we would rather waive the fee and have the scale done than have the patient not have the scale obtained. Will follow up with the patient in 4 weeks time to monitor weight loss. Total time was 30 min, greater than 50 % of time was spent on care coordination. Case discussed with collaborating physician Claude Jain who reviewed the assessment and plan. Chart, medications, labs, vital signs reviewed. Dictation was accomplished with the use of [employer] voice recognition software, prone to medical misidentifications and grammatical errors. This is unintentional and the practitioner does try to identify and correct these, but some could still be present. Please do not hesitate to contact practitioner for clarification. All questions answered to patients satisfaction. Patient verbalized understanding of diagnosis and treatments explained. To call sooner prior to next visit it any questions/concerns arise. 08/09/2025 Hyperlipidemia, unspecified hyperlipidemia type (ICD-10 - E78.5) #Morbid obesity. 321 pounds, BMI 39.1. He is doing fantastic on Zepbound 12.5 mg. Will continue current regimen. Continue consistent lifestyle modifications, healthy diet with focus on protein. Follow-up in 6 to 8 weeks sooner with any concerns. #HTN. At goal. Will monitor. #Hyperlipidemia. Improving. Plan for updated labs at next visit. The patient will continue exercise regimen with an emphasis on improving/increasing steps to at least 6,000-10,000 steps per day. Increasing cardio and strength training exercises as tolerated to improve weight loss and work on building muscle mass. Patient is committed to smarter eating with calorie counting and mindful eating. Limiting processed foods and carbohydrates and increasing leafy greens and lean proteins as well as fruits into their diet. Patient was counseled on the importance of eating local, organic food when possible. Patient has been counseled regarding effects of GLP/GIP-1 agonists and other FDA approved weight loss medications with regards to a multifactorial approach of weight loss as mentioned above and that the medication alone will not be sufficient to meet patients goals. We discussed holistic medication approach with emphasis on lifestyle modification. Discussed obesity as it increases risk of diabetes, cardiovascular disease, and/or organ damage. We spent a lot of time discussing the relationship between food, exercise, sleep, mental health, and obesity. We discussed the importance of having SECAs done every visit and having accountability done during these visits. That the scale is done to monitor not only weight loss but the body composition during medication management and healthy lifestyle changes. We discussed that if the patient is unable at times to financially afford this scale that we would rather waive the fee and have the scale done than have the patient not have the scale obtained. Will follow up with the patient in 4 weeks time to monitor weight loss. Total time was 30 min, greater than 50 % of time was spent on care coordination. Case discussed with collaborating physician Claude Jain who reviewed the assessment and plan. Chart, medications, labs, vital signs reviewed. Dictation was accomplished with the use of [employer] voice recognition software, prone to medical misidentifications and grammatical errors. This is unintentional and the practitioner does try to identify and correct these, but some could still be present. Please do not hesitate to contact practitioner for clarification. All questions answered to patients satisfaction. Patient verbalized understanding of diagnosis and treatments explained. To call sooner prior to next visit it any questions/concerns arise. 06/21/2025 Hyperlipidemia, unspecified hyperlipidemia type (ICD-10 - E78.5) #Morbid obesity. 06/21/25: 324.4 pounds, BMI 39.5. He is doing well on Zepbound 12.5 mg. Tolerating it well. Weight is down 3-1/2 pounds. Fat mass is down 7 pounds. Muscle mass is up. Will continue consistent lifestyle modifications including regular exercise and higher protein diet. Will plan to get updated labs at next visit. Follow-up in 4 to 6 weeks sooner with any concerns. #HTN. At goal. Will monitor. #Hyperlipidemia. Improving. Plan for updated labs at next visit. The patient will continue exercise regimen with an emphasis on improving/increasing steps to at least 6,000-10,000 steps per day. Increasing cardio and strength training exercises as tolerated to improve weight loss and work on building muscle mass. Patient is committed to smarter eating with calorie counting and mindful eating. Limiting processed foods and carbohydrates and increasing leafy greens and lean proteins as well as fruits into their diet. Patient was counseled on the importance of eating local, organic food when possible. Patient has been counseled regarding effects of GLP/GIP-1 agonists and other FDA approved weight loss medications with regards to a multifactorial approach of weight loss as mentioned above and that the medication alone will not be sufficient to meet patients goals. We discussed holistic medication approach with emphasis on lifestyle modification. Discussed obesity as it increases risk of diabetes, cardiovascular disease, and/or organ damage. We spent a lot of time discussing the relationship between food, exercise, sleep, mental health, and obesity. We discussed the importance of having SECAs done every visit and having accountability done during these visits. That the scale is done to monitor not only weight loss but the body composition during medication management and healthy lifestyle changes. We discussed that if the patient is unable at times to financially afford this scale that we would rather waive the fee and have the scale done than have the patient not have the scale obtained. Will follow up with the patient in 4 weeks time to monitor weight loss. Total time was 30 min, greater than 50 % of time was spent on care coordination. Case discussed with collaborating physician Claude Jain who reviewed the assessment and plan. Chart, medications, labs, vital signs reviewed. Dictation was accomplished with the use of [employer] voice recognition software, prone to medical misidentifications and grammatical errors. This is unintentional and the practitioner does try to identify and correct these, but some could still be present. Please do not hesitate to contact practitioner for clarification. All questions answered to patients satisfaction. Patient verbalized understanding of diagnosis and treatments explained. To call sooner prior to next visit it any questions/concerns arise. 05/17/2025 Hyperlipidemia, unspecified hyperlipidemia type (ICD-10 - E78.5) #Morbid obesity. 05/17/25: 326.9 pounds, BMI 39.8. He is doing well on Zepbound 12.5 mg. Tolerating it well. Weight is down 3-1/2 pounds. Fat mass is down 7 pounds. Muscle mass is up. Will continue consistent lifestyle modifications including regular exercise and higher protein diet. Will plan to get updated labs at next visit. Follow-up in 4 to 6 weeks sooner with any concerns. #HTN. At goal. Will monitor. #Hyperlipidemia. Improving. Plan for updated labs at next visit. The patient will continue exercise regimen with an emphasis on improving/increasing steps to at least 6,000-10,000 steps per day. Increasing cardio and strength training exercises as tolerated to improve weight loss and work on building muscle mass. Patient is committed to smarter eating with calorie counting and mindful eating. Limiting processed foods and carbohydrates and increasing leafy greens and lean proteins as well as fruits into their diet. Patient was counseled on the importance of eating local, organic food when possible. Patient has been counseled regarding effects of GLP/GIP-1 agonists and other FDA approved weight loss medications with regards to a multifactorial approach of weight loss as mentioned above and that the medication alone will not be sufficient to meet patients goals. We discussed holistic medication approach with emphasis on lifestyle modification. Discussed obesity as it increases risk of diabetes, cardiovascular disease, and/or organ damage. We spent a lot of time discussing the relationship between food, exercise, sleep, mental health, and obesity. We discussed the importance of having SECAs done every visit and having accountability done during these visits. That the scale is done to monitor not only weight loss but the body composition during medication management and healthy lifestyle changes. We discussed that if the patient is unable at times to financially afford this scale that we would rather waive the fee and have the scale done than have the patient not have the scale obtained. Will follow up with the patient in 4 weeks time to monitor weight loss. Total time was 30 min, greater than 50 % of time was spent on care coordination. Case discussed with collaborating physician Claude Jain who reviewed the assessment and plan. Chart, medications, labs, vital signs reviewed. Dictation was accomplished with the use of [employer] voice recognition software, prone to medical misidentifications and grammatical errors. This is unintentional and the practitioner does try to identify and correct these, but some could still be present. Please do not hesitate to contact practitioner for clarification. All questions answered to patients satisfaction. Patient verbalized understanding of diagnosis and treatments explained. To call sooner prior to next visit it any questions/concerns arise. 04/05/2025 Hyperlipidemia, unspecified hyperlipidemia type (ICD-10 - E78.5) #Morbid obesity. 04/05/25: 330.5 pounds, BMI 40.2 He is doing fantastic on Zepbound. Currently on 10 mg dose. Has noticed plateau over the last month or 2. Will increase to 12.5 mg weekly on next refill. Continue to work on consistent protein intake, hydration and regular exercise. Follow-up in 4 to 6 weeks sooner with any concerns. #HTN. At goal. Will monitor. #Hyperlipidemia. Improving. Monitor labs. The patient will continue exercise regimen with an emphasis on improving/increasing steps to at least 6,000-10,000 steps per day. Increasing cardio and strength training exercises as tolerated to improve weight loss and work on building muscle mass. Patient is committed to smarter eating with calorie counting and mindful eating. Limiting processed foods and carbohydrates and increasing leafy greens and lean proteins as well as fruits into their diet. Patient was counseled on the importance of eating local, organic food when possible. Patient has been counseled regarding effects of GLP/GIP-1 agonists and other FDA approved weight loss medications with regards to a multifactorial approach of weight loss as mentioned above and that the medication alone will not be sufficient to meet patients goals. We discussed holistic medication approach with emphasis on lifestyle modification. Discussed obesity as it increases risk of diabetes, cardiovascular disease, and/or organ damage. We spent a lot of time discussing the relationship between food, exercise, sleep, mental health, and obesity. We discussed the importance of having SECAs done every visit and having accountability done during these visits. That the scale is done to monitor not only weight loss but the body composition during medication management and healthy lifestyle changes. We discussed that if the patient is unable at times to financially afford this scale that we would rather waive the fee and have the scale done than have the patient not have the scale obtained. Will follow up with the patient in 4 weeks time to monitor weight loss. Total time was 30 min, greater than 50 % of time was spent on care coordination. Case discussed with collaborating physician Claude Jain who reviewed the assessment and plan. Chart, medications, labs, vital signs reviewed. Dictation was accomplished with the use of [employer] voice recognition software, prone to medical misidentifications and grammatical errors. This is unintentional and the practitioner does try to identify and correct these, but some could still be present. Please do not hesitate to contact practitioner for clarification. All questions answered to patients satisfaction. Patient verbalized understanding of diagnosis and treatments explained. To call sooner prior to next visit it any questions/concerns arise. 2025 Hyperlipidemia, unspecified hyperlipidemia type (ICD-10 - E78.5) #Morbid obesity. 02/22/25: 327.7 pounds, BMI 39.9. He is doing fantastic on Zepbound 10 mg. Will continue current dose. Continue TISH injections monthly. Continue increased protein intake and consistent exercise. Follow-up with me in 4 to 6 weeks sooner with any concerns. #HTN. At goal. Will monitor. #Hyperlipidemia. Improving. Monitor labs. The patient will continue exercise regimen with an emphasis on improving/increasing steps to at least 6,000-10,000 steps per day. Increasing cardio and strength training exercises as tolerated to improve weight loss and work on building muscle mass. Patient is committed to smarter eating with calorie counting and mindful eating. Limiting processed foods and carbohydrates and increasing leafy greens and lean proteins as well as fruits into their diet. Patient was counseled on the importance of eating local, organic food when possible. Patient has been counseled regarding effects of GLP/GIP-1 agonists and other FDA approved weight loss medications with regards to a multifactorial approach of weight loss as mentioned above and that the medication alone will not be sufficient to meet patients goals. We discussed holistic medication approach with emphasis on lifestyle modification. Discussed obesity as it increases risk of diabetes, cardiovascular disease, and/or organ damage. We spent a lot of time discussing the relationship between food, exercise, sleep, mental health, and obesity. We discussed the importance of having SECAs done every visit and having accountability done during these visits. That the scale is done to monitor not only weight loss but the body composition during medication management and healthy lifestyle changes. We discussed that if the patient is unable at times to financially afford this scale that we would rather waive the fee and have the scale done than have the patient not have the scale obtained. Will follow up with the patient in 4 weeks time to monitor weight loss. Total time was 30 min, greater than 50 % of time was spent on care coordination. Case discussed with collaborating physician Claude Jain who reviewed the assessment and plan. Chart, medications, labs, vital signs reviewed. Dictation was accomplished with the use of [employer] voice recognition software, prone to medical misidentifications and grammatical errors. This is unintentional and the practitioner does try to identify and correct these, but some could still be present. Please do not hesitate to contact practitioner for clarification. All questions answered to patients satisfaction. Patient verbalized understanding of diagnosis and treatments explained. To call sooner prior to next visit it any questions/concerns arise. 01/11/2025 Hyperlipidemia, unspecified hyperlipidemia type (ICD-10 - E78.5) #Morbid obesity. 01/11/25: 332.7 pounds, BMI 40.5. He is doing fantastic on Zepbound now on 10 mg weekly. He is down an additional 12 pounds and 18 pounds of fat mass. Muscle mass is also up 4 pounds. Will continue current regimen and continue to work on consistent protein intake and regular exercise. TISH injection given today as well. Follow-up with me in 1 month sooner with any concerns. #HTN. BP improved today. Will monitor. #Hyperlipidemia. LDL improved, TGs mildly elevated, cut back on carbs/sugar in diet. The patient will continue exercise regimen with an emphasis on improving/increasing steps to at least 6,000-10,000 steps per day. Increasing cardio and strength training exercises as tolerated to improve weight loss and work on building muscle mass. Patient is committed to smarter eating with calorie counting and mindful eating. Limiting processed foods and carbohydrates and increasing leafy greens and lean proteins as well as fruits into their diet. Patient was counseled on the importance of eating local, organic food when possible. Patient has been counseled regarding effects of GLP/GIP-1 agonists and other FDA approved weight loss medications with regards to a multifactorial approach of weight loss as mentioned above and that the medication alone will not be sufficient to meet patients goals. We discussed holistic medication approach with emphasis on lifestyle modification. Discussed obesity as it increases risk of diabetes, cardiovascular disease, and/or organ damage. We spent a lot of time discussing the relationship between food, exercise, sleep, mental health, and obesity. We discussed the importance of having SECAs done every visit and having accountability done during these visits. That the scale is done to monitor not only weight loss but the body composition during medication management and healthy lifestyle changes. We discussed that if the patient is unable at times to financially afford this scale that we would rather waive the fee and have the scale done than have the patient not have the scale obtained. Will follow up with the patient in 4 weeks time to monitor weight loss. Total time was 30 min, greater than 50 % of time was spent on care coordination. Case discussed with collaborating physician Claude Jain who reviewed the assessment and plan. Chart, medications, labs, vital signs reviewed. Dictation was accomplished with the use of [employer] voice recognition software, prone to medical misidentifications and grammatical errors. This is unintentional and the practitioner does try to identify and correct these, but some could still be present. Please do not hesitate to contact practitioner for clarification. All questions answered to patients satisfaction. Patient verbalized understanding of diagnosis and treatments explained. To call sooner prior to next visit it any questions/concerns arise. 12/06/2024 Hyperlipidemia, unspecified hyperlipidemia type (ICD-10 - E78.5) #Morbid obesity. 12/06/24: 346 pounds, BMI 42.1. He is doing well on Zepbound but has noticed decreased appetite suppression at 7.5 mg dose. Will increase to 10 mg on next refill. MICC given today. Reviewed risk benefits adverse effects of medication. Reviewed updated Seca scale with patient. Continue consistent exercise protein intake and hydration. Resume regular exercise as tolerated. Follow-up in 1 month sooner with any concerns. #HTN. BP improved today. Will monitor. #HYperlipidemia. Updated labs reviewed. LDL improved, TGs mildly elevated, cut back on carbs/sugar in diet. The patient will continue exercise regimen with an emphasis on improving/increasing steps to at least 6,000-10,000 steps per day. Increasing cardio and strength training exercises as tolerated to improve weight loss and work on building muscle mass. Patient is committed to smarter eating with calorie counting and mindful eating. Limiting processed foods and carbohydrates and increasing leafy greens and lean proteins as well as fruits into their diet. Patient was counseled on the importance of eating local, organic food when possible. Patient has been counseled regarding effects of GLP/GIP-1 agonists and other FDA approved weight loss medications with regards to a multifactorial approach of weight loss as mentioned above and that the medication alone will not be sufficient to meet patients goals. We discussed holistic medication approach with emphasis on lifestyle modification. Discussed obesity as it increases risk of diabetes, cardiovascular disease, and/or organ damage. We spent a lot of time discussing the relationship between food, exercise, sleep, mental health, and obesity. We discussed the importance of having SECAs done every visit and having accountability done during these visits. That the scale is done to monitor not only weight loss but the body composition during medication management and healthy lifestyle changes. We discussed that if the patient is unable at times to financially afford this scale that we would rather waive the fee and have the scale done than have the patient not have the scale obtained. Will follow up with the patient in 4 weeks time to monitor weight loss. Total time was 30 min, greater than 50 % of time was spent on care coordination. #HTN. BP improved. #Hyperlipidemia- Reviewed updated labs, discussed dietary modifications and exercise. Case discussed with collaborating physician Claude Jain who reviewed the assessment and plan. Chart, medications, labs, vital signs reviewed. Dictation was accomplished with the use of [employer] voice recognition software, prone to medical misidentifications and grammatical errors. This is unintentional and the practitioner does try to identify and correct these, but some could still be present. Please do not hesitate to contact practitioner for clarification. All questions answered to patients satisfaction. Patient verbalized understanding of diagnosis and treatments explained. To call sooner prior to next visit it any questions/concerns arise. 10/05/2024 Vitamin D deficiency, unspecified (ICD-10 - E55.9) #Morbid obesity. 10/05/24: 351.9 pounds, BMI 42.8. Updated Seca scale reviewed in detail with patient. Weight is up 7 pounds since last visit however fat mass is up 1-1/2 pounds and muscle mass is up 3 pounds. Waist circumference is down three quarters of an inch and visceral adipose tissue is down from 7.2-6.7. He has just transition to the Zepbound. Will submit for Zepbound 5 mg. Continue consistent protein intake and regular exercise. Needs updated labs. Will follow-up in 1 month sooner with any concerns. The patient will continue exercise regimen with an emphasis on improving/increasing steps to at least 6,000-10,000 steps per day. Increasing cardio and strength training exercises as tolerated to improve weight loss and work on building muscle mass. Patient is committed to smarter eating with calorie counting and mindful eating. Limiting processed foods and carbohydrates and increasing leafy greens and lean proteins as well as fruits into their diet. Patient was counseled on the importance of eating local, organic food when possible. Patient has been counseled regarding effects of GLP/GIP-1 agonists and other FDA approved weight loss medications with regards to a multifactorial approach of weight loss as mentioned above and that the medication alone will not be sufficient to meet patients goals. We discussed holistic medication approach with emphasis on lifestyle modification. Discussed obesity as it increases risk of diabetes, cardiovascular disease, and/or organ damage. We spent a lot of time discussing the relationship between food, exercise, sleep, mental health, and obesity. We discussed the importance of having SECAs done every visit and having accountability done during these visits. That the scale is done to monitor not only weight loss but the body composition during medication management and healthy lifestyle changes. We discussed that if the patient is unable at times to financially afford this scale that we would rather waive the fee and have the scale done than have the patient not have the scale obtained. Will follow up with the patient in 4 weeks time to monitor weight loss. Total time was 30 min, greater than 50 % of time was spent on care coordination. #HTN. BP at goal. #VItamin D deficiency- 18 on previous labs. due for labs. #Hyperlipidemia- f/u labs. Case discussed with collaborating physician Claude Jain who reviewed the assessment and plan. Chart, medications, labs, vital signs reviewed. Dictation was accomplished with the use of [employer] voice recognition software, prone to medical misidentifications and grammatical errors. This is unintentional and the practitioner does try to identify and correct these, but some could still be present. Please do not hesitate to contact practitioner for clarification. All questions answered to patients satisfaction. Patient verbalized understanding of diagnosis and treatments explained. To call sooner prior to next visit it any questions/concerns arise. 09/07/2024 Essential hypertension (ICD-10 - I10) Julián is a 34-year-old male with a PMH of HTN, HLD that presents for weight management follow-up. Reviewed [facility] holistic and medical approach to weight loss with emphasis on lifestyle modification. 09/07/2024: Weight: 344, BMI: 40.7. SECA reviewed, reveals 1 pound of fat gain loss. Patient continues to have above average muscle mass. Patient remains interested in transitioning to Zepbound. Patient establish care with us in October 2023 at which time he weighed 392 pounds. He has since successfully lost 48 pounds successfully with use of Wegovy. However, weight loss has begun to plateau. Will send Rx for Zepbound 2.5 mg SC weekly. Patient would benefit from dual incretin therapy given BMI of 40 and history of elevated cholesterol. 07/20/24: 348.3, BMI 42.4. He has been on Wegovy 2.4 mg and tolerating it well. He has plateaued however he continues to lose fat mass and increased muscle mass. He is interested in switching to Zepbound. Unfortunately this was denied by his insurance but is willing to pay for it through [employer]. Will submit prescription to pharmacy. Reviewed risk benefits adverse effects of medication. Continue to work on protein intake, regular exercise and hydration. Will plan to follow-up again in 1 month. We did discuss he will need to be off all injectable medications for at least 2 weeks prior to any planned surgery. He will let us know when he has more details about surgical date. 06/22/24: 347.2 pounds, BMI 42.3. He has been on Wegovy 2.4 mg and tolerating it well. However he has plateaued and is not noticing benefit from the medication at this point. Appetite has increased. We did submit for Zepbound at last visit which was denied by his insurance. Encouraged him to call to appeal. He may also want to consider [employer] for Zepbound. He will let us know in the interim we will continue Wegovy for now. We did discuss option of considering adding on phentermine in the short-term for appetite suppression. He will keep me posted in regards to his decision on Zepbound. Continue to work on protein, hydration and regular exercise. MICC injection given today follow-up with me in 1 month sooner with any issues. 05/24/24: 345 pounds, BMI 42.0. He has been tolerating Wegovy 2.4 mg well. He has noticed a plateau in the past month. Appetite has increased and is noticing less benefit from the medication. Discussed potential options. Will try submitting for Zepbound 2.5 mg. Reviewed risk benefits adverse effects of medication. Demonstrated proper use with pen autoinjector. Unfortunately he is allergic to Wellbutrin therefore Contrave is not an option for add-on. We did discuss potential consideration of phentermine if Zepbound is not covered. Continue to work on dietary modifications and exercise as tolerated. Follow-up in 4 weeks sooner with any concerns. Will add TISH injections today. 03/30/24: 352.4, BMI 42.9. He is doing fantastic on Wegovy 2.4 mg. Down 40 pounds overall. Will continue current regimen. Continue regular exercise and protein intake. Will get updated labs and review at follow-up visit. Follow-up in 4 to 6 weeks sooner with any concerns. 02/09/24: 375.2 lbs, BMI 45.7. Continue compounded semaglutide 2 mg. Awaiting approval for Wegovy. Discussed continued protein intake, hydration and regular exercise. Follow-up in 1 month sooner with any concerns. Will continue weekly injections of compounded semaglutide here in the office at 2 mg while awaiting approval. #HTN: BP initially elevated with systolic pressure in the 180s. Repeat BP 142/88. Upon chart review BP consistently elevated with systolic pressures in the 140s and diastolic pressures in the high 80s. Patient encouraged to follow-up with his primary care provider to address this. All questions answered to the patient's satisfaction. Patient demonstrates understanding of diagnosis and treatments discussed. Follow-up in 1 month, sooner should any questions/concerns arise. Case discussed with collaborating physician Felix Jain who has reviewed the assessment/plan. Chart, medications, labs, and vital signs reviewed. Dictation completed with the use of [employer] voice recognition software, prone to medical misidentifications and grammatical errors. All errors are unintentional. Although the practitioner does try to identify and correct errors, some may be present. Please do not hesitate to contact the practitioner for clarification. Total time spent was 30 minutes with >50% on coordination of care and patient education. 11/30/2024 Encounter for screening for other disorder (ICD-10 - Z13.89) #Annual physical. Actively working on weight reduction and is being followed in our weight management program. Continue healthy diet and regular exercise. Due for dental exam which he will schedule. Otherwise up-to-date on routine screenings and immunizations. Will get updated labs today follow-up pending results. Care proxy completed today. PHQ-9 12/25. Audit 12. Tetanus vaccine UTD at work last week. #STD screening. Asymptomatic however currently sexually active and willing to do routine screenings. Will follow-up pending results. Patient seen and examined. Comprehensive discussion was done on the following. 1. Nutrition: It is important to follow a healthy diet based on lots of vegetables and legumes and good fat. Avoid processed food and processed carbohydrates. Learn to prepare your own meals. Learn to read labels and avoid high fructose corn syrup, processed chemicals added to increase shelf life and preprepared meals. Avoid fast foods. Learn to eat slowly and plan meals for a week. Try to count calories and be mindful off daily calorie intake. Get into the habit of keeping an eye on your weight by using an appropriate scale. Learn to log exercise and discussed fitness Apps like [employer] which can help keep log off calories taken versus calories burned. Local food should be preferred. Discussed Dirty Dozen Versus Clean Fifteen. Discussed healthy supplements like fish oil, Tumeric, Curcumin, Melatonin, Resveratrol, Probiotics, Vitamin-D, Alpha-Lipoic acid, Vitamin-D and coconut oil. 2. It is important to exercise regularly. Is a good habit to walk at least 30-45 minutes a day. Gentle weightlifting with standard precautions to protect the back. Finding activity like cycling or hiking and get into the habit of engaging in it. Stretching before and after the exercises important. It is also important to contact me if there are any problems like shortness of breath, chest pain, back pain and joint or muscle pain associated with the exercise. 3. Discussed age appropriate screening guidelines. Colonoscopy needs to start at age 50 with stool for occult blood as appropriate. There is a new test that can test for genetic abnormalities in the stool sample. This would not replace a colonoscopy but could be used as a screening tool for patients who do not want a colonoscopy. We discussed the importance of early detection of colon cancer. 4. Discussed current PSA screening. PSA screening can be done in most patients between age 50 and 65. However early detection of prostate cancer needs to carefully be balanced with complications with treatment. These include incontinence, impotence etc. Each patient should decide if they would like to have this test. 5. Discussed safe driving and no use of smart phone while driving 6. Age-appropriate immunizations were discussed. A tetanus booster is needed every 10 years. Flu vaccine is recommended every year just before the start of the flu season. Shingles vaccine is recommended after age 50 but not all insurances cover it. Pneumonia vaccine is given after age 65 unless there are certain comorbidities for which it is started earlier. 7. Diagnostic labs were discussed. These could include CBC CMP and lipids with fasting blood glucose and insulin levels. Vitamin D and hemoglobin A1c testing might be appropriate. 11/01/2024 Hyperlipidemia, unspecified hyperlipidemia type (ICD-10 - E78.5) #Morbid obesity. 11/01/24: 349.1 pounds, BMI 42.5. He is doing well on Zepbound but has not noticed significant appetite suppression at 5 mg dose. Will increase to 7.5 mg. Reviewed risk benefits adverse effects of medication. Reviewed updated Seca scale with patient. Continue consistent exercise protein intake and hydration. Follow-up in 1 month sooner with any concerns. The patient will continue exercise regimen with an emphasis on improving/increasing steps to at least 6,000-10,000 steps per day. Increasing cardio and strength training exercises as tolerated to improve weight loss and work on building muscle mass. Patient is committed to smarter eating with calorie counting and mindful eating. Limiting processed foods and carbohydrates and increasing leafy greens and lean proteins as well as fruits into their diet. Patient was counseled on the importance of eating local, organic food when possible. Patient has been counseled regarding effects of GLP/GIP-1 agonists and other FDA approved weight loss medications with regards to a multifactorial approach of weight loss as mentioned above and that the medication alone will not be sufficient to meet patients goals. We discussed holistic medication approach with emphasis on lifestyle modification. Discussed obesity as it increases risk of diabetes, cardiovascular disease, and/or organ damage. We spent a lot of time discussing the relationship between food, exercise, sleep, mental health, and obesity. We discussed the importance of having SECAs done every visit and having accountability done during these visits. That the scale is done to monitor not only weight loss but the body composition during medication management and healthy lifestyle changes. We discussed that if the patient is unable at times to financially afford this scale that we would rather waive the fee and have the scale done than have the patient not have the scale obtained. Will follow up with the patient in 4 weeks time to monitor weight loss. Total time was 30 min, greater than 50 % of time was spent on care coordination. #HTN. BP mildly elevated today. Home reading have been well controlled. #Hyperlipidemia- Needs updated labs. Case discussed with collaborating physician Claude Jain who reviewed the assessment and plan. Chart, medications, labs, vital signs reviewed. Dictation was accomplished with the use of [employer] voice recognition software, prone to medical misidentifications and grammatical errors. This is unintentional and the practitioner does try to identify and correct these, but some could still be present. Please do not hesitate to contact practitioner for clarification. All questions answered to patients satisfaction. Patient verbalized understanding of diagnosis and treatments explained. To call sooner prior to next visit it any questions/concerns arise. 10/05/2024 Hyperlipidemia, unspecified hyperlipidemia type (ICD-10 - E78.5) #Morbid obesity. 10/05/24: 351.9 pounds, BMI 42.8. Updated Seca scale reviewed in detail with patient. Weight is up 7 pounds since last visit however fat mass is up 1-1/2 pounds and muscle mass is up 3 pounds. Waist circumference is down three quarters of an inch and visceral adipose tissue is down from 7.2-6.7. He has just transition to the Zepbound. Will submit for Zepbound 5 mg. Continue consistent protein intake and regular exercise. Needs updated labs. Will follow-up in 1 month sooner with any concerns. The patient will continue exercise regimen with an emphasis on improving/increasing steps to at least 6,000-10,000 steps per day. Increasing cardio and strength training exercises as tolerated to improve weight loss and work on building muscle mass. Patient is committed to smarter eating with calorie counting and mindful eating. Limiting processed foods and carbohydrates and increasing leafy greens and lean proteins as well as fruits into their diet. Patient was counseled on the importance of eating local, organic food when possible. Patient has been counseled regarding effects of GLP/GIP-1 agonists and other FDA approved weight loss medications with regards to a multifactorial approach of weight loss as mentioned above and that the medication alone will not be sufficient to meet patients goals. We discussed holistic medication approach with emphasis on lifestyle modification. Discussed obesity as it increases risk of diabetes, cardiovascular disease, and/or organ damage. We spent a lot of time discussing the relationship between food, exercise, sleep, mental health, and obesity. We discussed the importance of having SECAs done every visit and having accountability done during these visits. That the scale is done to monitor not only weight loss but the body composition during medication management and healthy lifestyle changes. We discussed that if the patient is unable at times to financially afford this scale that we would rather waive the fee and have the scale done than have the patient not have the scale obtained. Will follow up with the patient in 4 weeks time to monitor weight loss. Total time was 30 min, greater than 50 % of time was spent on care coordination. #HTN. BP at goal. #VItamin D deficiency- 18 on previous labs. due for labs. #Hyperlipidemia- f/u labs. Case discussed with collaborating physician Claude Jain who reviewed the assessment and plan. Chart, medications, labs, vital signs reviewed. Dictation was accomplished with the use of [employer] voice recognition software, prone to medical misidentifications and grammatical errors. This is unintentional and the practitioner does try to identify and correct these, but some could still be present. Please do not hesitate to contact practitioner for clarification. All questions answered to patients satisfaction. Patient verbalized understanding of diagnosis and treatments explained. To call sooner prior to next visit it any questions/concerns arise. 09/07/2024 Osteoarthritis of left hip, unspecified osteoarthritis type (ICD-10 - M16.12) Julián is a 34-year-old male with a PMH of HTN, HLD that presents for weight management follow-up. Reviewed [facility] holistic and medical approach to weight loss with emphasis on lifestyle modification. 09/07/2024: Weight: 344, BMI: 40.7. SECA reviewed, reveals 1 pound of fat gain loss. Patient continues to have above average muscle mass. Patient remains interested in transitioning to Zepbound. Patient establish care with us in October 2023 at which time he weighed 392 pounds. He has since successfully lost 48 pounds successfully with use of Wegovy. However, weight loss has begun to plateau. Will send Rx for Zepbound 2.5 mg SC weekly. Patient would benefit from dual incretin therapy given BMI of 40 and history of elevated cholesterol. 07/20/24: 348.3, BMI 42.4. He has been on Wegovy 2.4 mg and tolerating it well. He has plateaued however he continues to lose fat mass and increased muscle mass. He is interested in switching to Zepbound. Unfortunately this was denied by his insurance but is willing to pay for it through [employer]. Will submit prescription to pharmacy. Reviewed risk benefits adverse effects of medication. Continue to work on protein intake, regular exercise and hydration. Will plan to follow-up again in 1 month. We did discuss he will need to be off all injectable medications for at least 2 weeks prior to any planned surgery. He will let us know when he has more details about surgical date. 06/22/24: 347.2 pounds, BMI 42.3. He has been on Wegovy 2.4 mg and tolerating it well. However he has plateaued and is not noticing benefit from the medication at this point. Appetite has increased. We did submit for Zepbound at last visit which was denied by his insurance. Encouraged him to call to appeal. He may also want to consider [facility] direct for Zepbound. He will let us know in the interim we will continue Wegovy for now. We did discuss option of considering adding on phentermine in the short-term for appetite suppression. He will keep me posted in regards to his decision on Zepbound. Continue to work on protein, hydration and regular exercise. MICC injection given today follow-up with me in 1 month sooner with any issues. 05/24/24: 345 pounds, BMI 42.0. He has been tolerating Wegovy 2.4 mg well. He has noticed a plateau in the past month. Appetite has increased and is noticing less benefit from the medication. Discussed potential options. Will try submitting for Zepbound 2.5 mg. Reviewed risk benefits adverse effects of medication. Demonstrated proper use with pen autoinjector. Unfortunately he is allergic to Wellbutrin therefore Contrave is not an option for add-on. We did discuss potential consideration of phentermine if Zepbound is not covered. Continue to work on dietary modifications and exercise as tolerated. Follow-up in 4 weeks sooner with any concerns. Will add TISH injections today. 03/30/24: 352.4, BMI 42.9. He is doing fantastic on Wegovy 2.4 mg. Down 40 pounds overall. Will continue current regimen. Continue regular exercise and protein intake. Will get updated labs and review at follow-up visit. Follow-up in 4 to 6 weeks sooner with any concerns. 02/09/24: 375.2 lbs, BMI 45.7. Continue compounded semaglutide 2 mg. Awaiting approval for Wegovy. Discussed continued protein intake, hydration and regular exercise. Follow-up in 1 month sooner with any concerns. Will continue weekly injections of compounded semaglutide here in the office at 2 mg while awaiting approval. #HTN: BP initially elevated with systolic pressure in the 180s. Repeat BP 142/88. Upon chart review BP consistently elevated with systolic pressures in the 140s and diastolic pressures in the high 80s. Patient encouraged to follow-up with his primary care provider to address this. All questions answered to the patient's satisfaction. Patient demonstrates understanding of diagnosis and treatments discussed. Follow-up in 1 month, sooner should any questions/concerns arise. Case discussed with collaborating physician Felix Jain who has reviewed the assessment/plan. Chart, medications, labs, and vital signs reviewed. Dictation completed with the use of [employer] voice recognition software, prone to medical misidentifications and grammatical errors. All errors are unintentional. Although the practitioner does try to identify and correct errors, some may be present. Please do not hesitate to contact the practitioner for clarification. Total time spent was 30 minutes with >50% on coordination of care and patient education. 12/06/2024 Weight loss counseling, encounter for (ICD-10 - Z71.3) #Morbid obesity. 12/06/24: 346 pounds, BMI 42.1. He is doing well on Zepbound but has noticed decreased appetite suppression at 7.5 mg dose. Will increase to 10 mg on next refill. MICC given today. Reviewed risk benefits adverse effects of medication. Reviewed updated Seca scale with patient. Continue consistent exercise protein intake and hydration. Resume regular exercise as tolerated. Follow-up in 1 month sooner with any concerns. #HTN. BP improved today. Will monitor. #HYperlipidemia. Updated labs reviewed. LDL improved, TGs mildly elevated, cut back on carbs/sugar in diet. The patient will continue exercise regimen with an emphasis on improving/increasing steps to at least 6,000-10,000 steps per day. Increasing cardio and strength training exercises as tolerated to improve weight loss and work on building muscle mass. Patient is committed to smarter eating with calorie counting and mindful eating. Limiting processed foods and carbohydrates and increasing leafy greens and lean proteins as well as fruits into their diet. Patient was counseled on the importance of eating local, organic food when possible. Patient has been counseled regarding effects of GLP/GIP-1 agonists and other FDA approved weight loss medications with regards to a multifactorial approach of weight loss as mentioned above and that the medication alone will not be sufficient to meet patients goals. We discussed holistic medication approach with emphasis on lifestyle modification. Discussed obesity as it increases risk of diabetes, cardiovascular disease, and/or organ damage. We spent a lot of time discussing the relationship between food, exercise, sleep, mental health, and obesity. We discussed the importance of having SECAs done every visit and having accountability done during these visits. That the scale is done to monitor not only weight loss but the body composition during medication management and healthy lifestyle changes. We discussed that if the patient is unable at times to financially afford this scale that we would rather waive the fee and have the scale done than have the patient not have the scale obtained. Will follow up with the patient in 4 weeks time to monitor weight loss. Total time was 30 min, greater than 50 % of time was spent on care coordination. #HTN. BP improved. #Hyperlipidemia- Reviewed updated labs, discussed dietary modifications and exercise. Case discussed with collaborating physician Claude Jain who reviewed the assessment and plan. Chart, medications, labs, vital signs reviewed. Dictation was accomplished with the use of [employer] voice recognition software, prone to medical misidentifications and grammatical errors. This is unintentional and the practitioner does try to identify and correct these, but some could still be present. Please do not hesitate to contact practitioner for clarification. All questions answered to patients satisfaction. Patient verbalized understanding of diagnosis and treatments explained. To call sooner prior to next visit it any questions/concerns arise. 01/11/2025 Weight loss counseling, encounter for (ICD-10 - Z71.3) #Morbid obesity. 01/11/25: 332.7 pounds, BMI 40.5. He is doing fantastic on Zepbound now on 10 mg weekly. He is down an additional 12 pounds and 18 pounds of fat mass. Muscle mass is also up 4 pounds. Will continue current regimen and continue to work on consistent protein intake and regular exercise. TISH injection given today as well. Follow-up with me in 1 month sooner with any concerns. #HTN. BP improved today. Will monitor. #Hyperlipidemia. LDL improved, TGs mildly elevated, cut back on carbs/sugar in diet. The patient will continue exercise regimen with an emphasis on improving/increasing steps to at least 6,000-10,000 steps per day. Increasing cardio and strength training exercises as tolerated to improve weight loss and work on building muscle mass. Patient is committed to smarter eating with calorie counting and mindful eating. Limiting processed foods and carbohydrates and increasing leafy greens and lean proteins as well as fruits into their diet. Patient was counseled on the importance of eating local, organic food when possible. Patient has been counseled regarding effects of GLP/GIP-1 agonists and other FDA approved weight loss medications with regards to a multifactorial approach of weight loss as mentioned above and that the medication alone will not be sufficient to meet patients goals. We discussed holistic medication approach with emphasis on lifestyle modification. Discussed obesity as it increases risk of diabetes, cardiovascular disease, and/or organ damage. We spent a lot of time discussing the relationship between food, exercise, sleep, mental health, and obesity. We discussed the importance of having SECAs done every visit and having accountability done during these visits. That the scale is done to monitor not only weight loss but the body composition during medication management and healthy lifestyle changes. We discussed that if the patient is unable at times to financially afford this scale that we would rather waive the fee and have the scale done than have the patient not have the scale obtained. Will follow up with the patient in 4 weeks time to monitor weight loss. Total time was 30 min, greater than 50 % of time was spent on care coordination. Case discussed with collaborating physician Claude Jain who reviewed the assessment and plan. Chart, medications, labs, vital signs reviewed. Dictation was accomplished with the use of [employer] voice recognition software, prone to medical misidentifications and grammatical errors. This is unintentional and the practitioner does try to identify and correct these, but some could still be present. Please do not hesitate to contact practitioner for clarification. All questions answered to patients satisfaction. Patient verbalized understanding of diagnosis and treatments explained. To call sooner prior to next visit it any questions/concerns arise. 2025 Weight loss counseling, encounter for (ICD-10 - Z71.3) #Morbid obesity. 02/22/25: 327.7 pounds, BMI 39.9. He is doing fantastic on Zepbound 10 mg. Will continue current dose. Continue TISH injections monthly. Continue increased protein intake and consistent exercise. Follow-up with me in 4 to 6 weeks sooner with any concerns. #HTN. At goal. Will monitor. #Hyperlipidemia. Improving. Monitor labs. The patient will continue exercise regimen with an emphasis on improving/increasing steps to at least 6,000-10,000 steps per day. Increasing cardio and strength training exercises as tolerated to improve weight loss and work on building muscle mass. Patient is committed to smarter eating with calorie counting and mindful eating. Limiting processed foods and carbohydrates and increasing leafy greens and lean proteins as well as fruits into their diet. Patient was counseled on the importance of eating local, organic food when possible. Patient has been counseled regarding effects of GLP/GIP-1 agonists and other FDA approved weight loss medications with regards to a multifactorial approach of weight loss as mentioned above and that the medication alone will not be sufficient to meet patients goals. We discussed holistic medication approach with emphasis on lifestyle modification. Discussed obesity as it increases risk of diabetes, cardiovascular disease, and/or organ damage. We spent a lot of time discussing the relationship between food, exercise, sleep, mental health, and obesity. We discussed the importance of having SECAs done every visit and having accountability done during these visits. That the scale is done to monitor not only weight loss but the body composition during medication management and healthy lifestyle changes. We discussed that if the patient is unable at times to financially afford this scale that we would rather waive the fee and have the scale done than have the patient not have the scale obtained. Will follow up with the patient in 4 weeks time to monitor weight loss. Total time was 30 min, greater than 50 % of time was spent on care coordination. Case discussed with collaborating physician Claude Jain who reviewed the assessment and plan. Chart, medications, labs, vital signs reviewed. Dictation was accomplished with the use of [employer] voice recognition software, prone to medical misidentifications and grammatical errors. This is unintentional and the practitioner does try to identify and correct these, but some could still be present. Please do not hesitate to contact practitioner for clarification. All questions answered to patients satisfaction. Patient verbalized understanding of diagnosis and treatments explained. To call sooner prior to next visit it any questions/concerns arise. 04/05/2025 Weight loss counseling, encounter for (ICD-10 - Z71.3) #Morbid obesity. 04/05/25: 330.5 pounds, BMI 40.2 He is doing fantastic on Zepbound. Currently on 10 mg dose. Has noticed plateau over the last month or 2. Will increase to 12.5 mg weekly on next refill. Continue to work on consistent protein intake, hydration and regular exercise. Follow-up in 4 to 6 weeks sooner with any concerns. #HTN. At goal. Will monitor. #Hyperlipidemia. Improving. Monitor labs. The patient will continue exercise regimen with an emphasis on improving/increasing steps to at least 6,000-10,000 steps per day. Increasing cardio and strength training exercises as tolerated to improve weight loss and work on building muscle mass. Patient is committed to smarter eating with calorie counting and mindful eating. Limiting processed foods and carbohydrates and increasing leafy greens and lean proteins as well as fruits into their diet. Patient was counseled on the importance of eating local, organic food when possible. Patient has been counseled regarding effects of GLP/GIP-1 agonists and other FDA approved weight loss medications with regards to a multifactorial approach of weight loss as mentioned above and that the medication alone will not be sufficient to meet patients goals. We discussed holistic medication approach with emphasis on lifestyle modification. Discussed obesity as it increases risk of diabetes, cardiovascular disease, and/or organ damage. We spent a lot of time discussing the relationship between food, exercise, sleep, mental health, and obesity. We discussed the importance of having SECAs done every visit and having accountability done during these visits. That the scale is done to monitor not only weight loss but the body composition during medication management and healthy lifestyle changes. We discussed that if the patient is unable at times to financially afford this scale that we would rather waive the fee and have the scale done than have the patient not have the scale obtained. Will follow up with the patient in 4 weeks time to monitor weight loss. Total time was 30 min, greater than 50 % of time was spent on care coordination. Case discussed with collaborating physician Claude Jain who reviewed the assessment and plan. Chart, medications, labs, vital signs reviewed. Dictation was accomplished with the use of [employer] voice recognition software, prone to medical misidentifications and grammatical errors. This is unintentional and the practitioner does try to identify and correct these, but some could still be present. Please do not hesitate to contact practitioner for clarification. All questions answered to patients satisfaction. Patient verbalized understanding of diagnosis and treatments explained. To call sooner prior to next visit it any questions/concerns arise. 05/17/2025 Weight loss counseling, encounter for (ICD-10 - Z71.3) #Morbid obesity. 05/17/25: 326.9 pounds, BMI 39.8. He is doing well on Zepbound 12.5 mg. Tolerating it well. Weight is down 3-1/2 pounds. Fat mass is down 7 pounds. Muscle mass is up. Will continue consistent lifestyle modifications including regular exercise and higher protein diet. Will plan to get updated labs at next visit. Follow-up in 4 to 6 weeks sooner with any concerns. #HTN. At goal. Will monitor. #Hyperlipidemia. Improving. Plan for updated labs at next visit. The patient will continue exercise regimen with an emphasis on improving/increasing steps to at least 6,000-10,000 steps per day. Increasing cardio and strength training exercises as tolerated to improve weight loss and work on building muscle mass. Patient is committed to smarter eating with calorie counting and mindful eating. Limiting processed foods and carbohydrates and increasing leafy greens and lean proteins as well as fruits into their diet. Patient was counseled on the importance of eating local, organic food when possible. Patient has been counseled regarding effects of GLP/GIP-1 agonists and other FDA approved weight loss medications with regards to a multifactorial approach of weight loss as mentioned above and that the medication alone will not be sufficient to meet patients goals. We discussed holistic medication approach with emphasis on lifestyle modification. Discussed obesity as it increases risk of diabetes, cardiovascular disease, and/or organ damage. We spent a lot of time discussing the relationship between food, exercise, sleep, mental health, and obesity. We discussed the importance of having SECAs done every visit and having accountability done during these visits. That the scale is done to monitor not only weight loss but the body composition during medication management and healthy lifestyle changes. We discussed that if the patient is unable at times to financially afford this scale that we would rather waive the fee and have the scale done than have the patient not have the scale obtained. Will follow up with the patient in 4 weeks time to monitor weight loss. Total time was 30 min, greater than 50 % of time was spent on care coordination. Case discussed with collaborating physician Claude Jain who reviewed the assessment and plan. Chart, medications, labs, vital signs reviewed. Dictation was accomplished with the use of [employer] voice recognition software, prone to medical misidentifications and grammatical errors. This is unintentional and the practitioner does try to identify and correct these, but some could still be present. Please do not hesitate to contact practitioner for clarification. All questions answered to patients satisfaction. Patient verbalized understanding of diagnosis and treatments explained. To call sooner prior to next visit it any questions/concerns arise. 08/09/2025 Weight loss counseling, encounter for (ICD-10 - Z71.3) #Morbid obesity. 321 pounds, BMI 39.1. He is doing fantastic on Zepbound 12.5 mg. Will continue current regimen. Continue consistent lifestyle modifications, healthy diet with focus on protein. Follow-up in 6 to 8 weeks sooner with any concerns. #HTN. At goal. Will monitor. #Hyperlipidemia. Improving. Plan for updated labs at next visit. The patient will continue exercise regimen with an emphasis on improving/increasing steps to at least 6,000-10,000 steps per day. Increasing cardio and strength training exercises as tolerated to improve weight loss and work on building muscle mass. Patient is committed to smarter eating with calorie counting and mindful eating. Limiting processed foods and carbohydrates and increasing leafy greens and lean proteins as well as fruits into their diet. Patient was counseled on the importance of eating local, organic food when possible. Patient has been counseled regarding effects of GLP/GIP-1 agonists and other FDA approved weight loss medications with regards to a multifactorial approach of weight loss as mentioned above and that the medication alone will not be sufficient to meet patients goals. We discussed holistic medication approach with emphasis on lifestyle modification. Discussed obesity as it increases risk of diabetes, cardiovascular disease, and/or organ damage. We spent a lot of time discussing the relationship between food, exercise, sleep, mental health, and obesity. We discussed the importance of having SECAs done every visit and having accountability done during these visits. That the scale is done to monitor not only weight loss but the body composition during medication management and healthy lifestyle changes. We discussed that if the patient is unable at times to financially afford this scale that we would rather waive the fee and have the scale done than have the patient not have the scale obtained. Will follow up with the patient in 4 weeks time to monitor weight loss. Total time was 30 min, greater than 50 % of time was spent on care coordination. Case discussed with collaborating physician Claude Jain who reviewed the assessment and plan. Chart, medications, labs, vital signs reviewed. Dictation was accomplished with the use of [employer] voice recognition software, prone to medical misidentifications and grammatical errors. This is unintentional and the practitioner does try to identify and correct these, but some could still be present. Please do not hesitate to contact practitioner for clarification. All questions answered to patients satisfaction. Patient verbalized understanding of diagnosis and treatments explained. To call sooner prior to next visit it any questions/concerns arise. 06/21/2025 Weight loss counseling, encounter for (ICD-10 - Z71.3) #Morbid obesity. 06/21/25: 324.4 pounds, BMI 39.5. He is doing well on Zepbound 12.5 mg. Tolerating it well. Weight is down 3-1/2 pounds. Fat mass is down 7 pounds. Muscle mass is up. Will continue consistent lifestyle modifications including regular exercise and higher protein diet. Will plan to get updated labs at next visit. Follow-up in 4 to 6 weeks sooner with any concerns. #HTN. At goal. Will monitor. #Hyperlipidemia. Improving. Plan for updated labs at next visit. The patient will continue exercise regimen with an emphasis on improving/increasing steps to at least 6,000-10,000 steps per day. Increasing cardio and strength training exercises as tolerated to improve weight loss and work on building muscle mass. Patient is committed to smarter eating with calorie counting and mindful eating. Limiting processed foods and carbohydrates and increasing leafy greens and lean proteins as well as fruits into their diet. Patient was counseled on the importance of eating local, organic food when possible. Patient has been counseled regarding effects of GLP/GIP-1 agonists and other FDA approved weight loss medications with regards to a multifactorial approach of weight loss as mentioned above and that the medication alone will not be sufficient to meet patients goals. We discussed holistic medication approach with emphasis on lifestyle modification. Discussed obesity as it increases risk of diabetes, cardiovascular disease, and/or organ damage. We spent a lot of time discussing the relationship between food, exercise, sleep, mental health, and obesity. We discussed the importance of having SECAs done every visit and having accountability done during these visits. That the scale is done to monitor not only weight loss but the body composition during medication management and healthy lifestyle changes. We discussed that if the patient is unable at times to financially afford this scale that we would rather waive the fee and have the scale done than have the patient not have the scale obtained. Will follow up with the patient in 4 weeks time to monitor weight loss. Total time was 30 min, greater than 50 % of time was spent on care coordination. Case discussed with collaborating physician Claude Jain who reviewed the assessment and plan. Chart, medications, labs, vital signs reviewed. Dictation was accomplished with the use of Dragon voice recognition software, prone to medical misidentifications and grammatical errors. This is unintentional and the practitioner does try to identify and correct these, but some could still be present. Please do not hesitate to contact practitioner for clarification. All questions answered to patients satisfaction. Patient verbalized understanding of diagnosis and treatments explained. To call sooner prior to next visit it any questions/concerns arise. Plan Of Treatment Pending Test Test Name Order Date RPR 11/30/2024 HIV 11/30/2024 25OH VITAMIN D 09/25/2023 25OH VITAMIN D 03/30/2024 CBC (COMPLETE BLOOD COUNT) 09/25/2023 COMPREHENSIVE METABOLIC PANEL 09/25/2023 COMPREHENSIVE METABOLIC PANEL 03/30/2024 HEMOGLOBIN A1C 03/30/2024 HEMOGLOBIN A1C 09/25/2023 LIPID PANEL 09/25/2023 LIPID PANEL 03/30/2024 TSH 09/25/2023 TSH 11/30/2024 URINALYSIS W/REFLEX CULTURE 09/25/2023 Hepatitis A (HAAb) Antibody IgM 12/01/19 25 Insulin Level 09/25/2023 Gonorrhea Probe 11/30/2024 UA WITH CULTURE IF INDICATED 11/30/2024 CHLAMYDIA DNA URINE 11/30/2024 LIPID PANEL, STANDARD 11/30/2024 COMPREHENSIVE METABOLIC PANEL 11/30/2024 CBC (INCLUDES DIFF/PLT) 11/30/2024 HEMOGLOBIN A1c 11/30/2024 VITAMIN D,25-OH,TOTAL,IA 11/30/2024 Next Appt Details Provider Name:Adwoa Brown, 0 09/27/2025 10:15:00 AM, [address] [facility] [address], [place], [address], Insurance Providers Payer Name Payer Address Payer Phone Subscriber Number Group Number Insured Name Patient Relationship to Insured Coverage Start Date Coverage End Date [facility] [address] [place] [address] [id number] Julián Canales Self - patient is the insured Medications Administered Medication Instructions Date of Administration Dosage Notes MICC B12 INJECTION 11/17/2023 MICC B12 INJECTION 05/24/2024 MICC B12 INJECTION 06/22/2024 MICC B12 INJECTION 07/20/2024 MICC B12 INJECTION 12/06/2024 1 mg MICC B12 INJECTION 01/11/2025 1 mg MICC B12 INJECTION 2025 1 mL Semaglutide 11/17/2023 .25 mg Semaglutide 11/24/2023 0.5 mg Semaglutide 12/01/2023 0.5 mg Semaglutide 12/08/2023 0.50 mg Semaglutide 12/15/2023 Semaglutide 12/22/2023 1 mg Semaglutide 12/29/2023 1.0 mg LLQ SQ Semaglutide 01/05/2024 1 mg Semaglutide 01/11/2024 1.5 mg Semaglutide 01/18/2024 1.5 mg Semaglutide 01/27/2024 1.5 mg Semaglutide 02/02/2024 2 mg Tirzepatide 02/09/2024 2 mg Medical (General) History Medical History History ICD Code weight gain/ weight loss Surgical History Surgery Date(Month/Year) right leg/ ruptured quadricep tendon 2022 left knee, arthroscopy 08/2008
--- OUTSIDE RECORDS SUMMARY | 2025-08-25 00:19 | XMS_ITS ---
Author Name [facility] Organization Unknown Care Team Organization Name Specialty Phone Email Start Date End Da te [facility] You Jain Primary [facility] 03/17/2024 [facility] Alicia Primary [facility] 07/08/2022 04/18/2024
--- OUTSIDE RECORDS SUMMARY | 2025-08-25 00:19 | XMS_ITS | Clinical Summary ---
Author Organization [address] Address [address] [place] [phone] Phone Care Team Providers Care Perforator Name Role Phone Adwoa Brown Primary Care Provider [phone] Surgical History Surgery Date Site/Laterality Comments KNEE ARTHROSCOPY W/ MENISCAL REPAIR Left PROCEDURE: HI ARTHROSCOPY KNEE W/MENISCUS RPR MEDIAL/LATERAL; COMMENT: neos Family History Medical History Relation Name Comments Heart attack Father at the age of 5 6 Breast cancer Mother at the age of 39 Relation Name Status Comments Father Mother Social History Tobacco Use Types Packs/Day Years Used Date Smoking Tobacco: Never Smokeless Tobacco: Never Alcohol Use Standard Drinks/Week Comments No 0 (1 standard drink = 0.6 oz pur e alcohol) Sex and Gender Information Value Date Recorded Sex Assigned at Not on file Legal Sex Male 6:55 AM EST Gender Identity Not on file Sexual Orientation Not on file Plan of Treatment Health Maintenance Due Date Last Done Comments Hepatitis B Vaccines (1 of 3 - 19+ 3-dose series) 02/21/2007 HPV Vaccines (1 - 3-dose SCD M series) 02/21/2015 Hepatitis C Screening 10/04/2023 Social Influencers of Health Screening 10/04/2023 Depression Screening 08/31/2024 COVID-19 Vaccine (3 - 2024-2 6 season) 2025 12/05/2020, 09/18/2020 Influenza Vaccine (#1) 2025 Cholesterol Screening (Lipid Panel) 11/30/2029 11/30/2024 DTaP,Tdap,and Td Vaccines (3 - Td or Tdap) 11/23/2034 11/23/2024, 05/01/2014 RSV Immunization Adult Patients (1 - 1-dose 75+ series) 02/21/2063 HIV Screening Completed 11/30/2024 HIB Vaccines Aged Out No longer eligi ble based on patient's age to complete this topic Hepatitis A Vaccines Aged Out No long er eligible based on patient's age to complete this topic IPV Vaccines Aged Out No longer eligi ble based on patient's age to complete this topic MMR Vaccines Aged Out No longer eligi ble based on patient's age to complete this topic Meningococcal ACWY Vaccine Aged Out N o longer eligible based on patient's age to complete this topic Meningococcal B Vaccine Aged Out No l onger eligible based on patient's age to complete this topic Pneumococcal Vaccine: Pediatrics (0 to 5 Years) and At-Risk Patients (6 to 49 Years) Aged Out No longer eligible b ased on patient's age to complete this topic RSV Immunization Patients Under 20 months Aged Out No longer eligible b ased on patient's age to complete this topic Varicella Vaccines Aged Out No longer eligible based on patient's age to complete this topic Procedures Procedure Name Priority Date/Time Associated Diagnosis Comments HIV 1, 2 ANTIBODY, P24 ANTIGEN WITH REFLEX TO DIFFERENTIATION Routine 11/30/2024 2:43 PM EDT Routine general medical examination at a health care facility Screening for lipoid disorders Avitaminosis D Screening examination for venereal disease Screening for thyroid disorder LIPID PANEL WITH REFLEX TO DIRECT LDL Routine 11/30/2024 2:43 PM EDT Routine general medical examination at a health care facility Screening for lipoid disorders Avitaminosis D Screening examination for venereal disease Screening for thyroid disorder from Last 3 Months or Most Recently Relevant to Health Maintenance Results * HIV 1,2 antibody, p24 antigen with reflex to differentiation (11/30/2024 2:43 PM EDT) HIV Combo AB/AG Negative Negative LAB CHEMISTRY METHOD 11/30/2024 11:17 PM EDT [facility] [place] Blood Venous blood specimen / Unknown Venipuncture / Unknown 11/30/2024 2:43 PM EDT 11/30/2024 3:[address] [facility] - 11/30/2024 11:17 PM EDT This assay is a 4th generation assay allowing for earlier detection of HIV infection by detecting the presence of the HIV-1 p24 antigen as well as the traditional antibodies to HIV type 1 (including group O) and type 2. Use of a 4th generation assay is the current CDC recommendation for HIV screening. us Adwoa WILLIAM LAB BLOOD ORDERABLES Final Resul t [facility] [address] [place] [address], [place] [phone] * (ABNORMAL) Lipid panel with reflex to direct LDL (11/30/2024 2:43 PM EDT) Cholesterol 204(H) 0 - 200 mg/dL LAB CHEMISTRY METHOD 11/30/2024 9:[address] [facility] Triglycerides 211(H) 0 - 150 mg/dL LAB CHEMISTRY METHOD 11/30/2024 9:[address] [facility] HDL 37(L) >=40 mg/dL LAB CHEMISTRY METHOD 11/30/2024 9:[address] [facility] LDL Calculated 125(H) 0 - 100 mg/dL LAB CHEMISTRY METHOD 11/[facility]24 [facility] VLDL Cholesterol Saul 42.2 mg/dL LAB CHEMISTRY METHOD 11/30/2024 9:[address] [facility] Non HDL Chol. (LDL+VLDL) 167(H) <145 mg/dL LAB CHEMISTRY METHOD 11/30/2024 9:[address] [facility] Chol/HDL Ratio 5.5(H) 0.0 - 4.4 LAB CHEMISTRY METHOD 11/30/2024 9:42 PM [facility] Blood Venous blood specimen / Unknown Venipuncture / Unknown 11/30/2024 2:43 PM EDT 11/30/2024 3:14 PM EDT Adwoa WILLIAM LAB BLOOD ORDERABLES Final Resul t [facility] [address] [place] [address], from Last 3 Months or Most Recently Relevant to Health Maintenance Insurance [facility] [address] [place] [id number] Care Teams Perforator Relationship Specialty Start Date End Date Adwoa Brown PA [address] [facility] [address] [place] [address] PCP - General 11/30/24
--- OUTSIDE RECORDS SUMMARY | 2025-08-25 00:19 | XMS_ITS | Clinical Summary ---
Author Organization [facility] Address [address] [place] [phone] Phone Care Team Providers Care Stationary Equipment Mechanic Name Role Phone Radha Serrano MD Primary Care Provider Unava ilable Immunizations Immunization Administration Dates Next Due DTP 09/30/1998, 8,05/30/1998,03/01,10/28/1989 Hep B, ped/adol 03/20/2000,10/02/1999,08/02/1999 Hib (PRP-T) 10/28/1989 IPV 07/30/1998, 8,03/01/1993,10/28 MMR 10/02/1999,06/30/1999 Meningococcal Conj (Menactra) MCV4P 04/13/2006 Td (adult) (MBL), 2 Lf tetan us toxoid, PF, adsorbed 10/02/1999 Tdap 03/25/2007 Unknown Vaccine 01/29/1989 Varicella 09/11/1997 Family History Relation Name Status Comments Brother Alive Brother: Alive and well Father Alive Father: Alive a nd well Mother Alive Mother: Alive a nd well Sister Alive Sister: Alive a nd well Social History Tobacco Use Types Packs/Day Years Used Date Smoking Tobacco: Never Assessed Sex and Gender Information Value Date Recorded Sex Assigned at Not on file Legal Sex Male 4:29 PM EDT Gender Identity Not on file Sexual Orientation Not on file Plan of Treatment Health Maintenance Due Date Last Done Comments Varicella Vaccines (2 of 2 - 2-dose childhood series) 10/30/1999 09/11/1997 HPV Vaccines (1 - 3-dose SCDM series) 02/21/2015 DTaP,Tdap,and Td Vaccines (8 - Td or Tdap) 03/25/2017 03/25/2007, 10/02/1999, 09/30/1998, Additional history exists Influenza Vaccines (#1) 2025 COVID-19 Vaccine ( season) 2025 HIB Vaccines Completed 10/28/1989 IPV Vaccines Completed 07/30/1998, 05/03, 03/01/1993, Additional history exists MMR Vaccines Completed 10/02/1999, 06/30/1999 Hepatitis B Vaccines Completed 03/20/2000, 10/02/1999, 08/02/1999 Meningococcal Vaccine Completed 04/13/2006 Hepatitis A Vaccines Aged Out No long er eligible based on patient's age to complete this topic Men B Vaccine Aged Out No longer elig ible based on patient's age to complete this topic Pneumococcal Vaccine Aged Out No long er eligible based on patient's age to complete this topic Care Teams Stationary Equipment Mechanic Relationship Specialty Start Date End Date Radha Serrano MD PCP - General 04/10/17
--- OUTSIDE RECORDS SUMMARY | 2025-08-25 00:19 | XMS_ITS | Data Portability ---
Author Organization [facility], [facility] Address [address] [place] [address] Care Team Providers Care Executive Assistant To President Name Role Phone Alyssa Jain Primary Care Provider Assessment Encounter Date Assessment Date Assessment LastModified by Organization Details LastModified Time 03/02/2024 03/02/2024 Good knowledge of exercises demonstrated. Discharged to [facility] [email or web address] Not available 03/02/2024 21:24:18 Plan of Treatment Reminders Order Date Submit Date Provider Name Organization Details Last Modified By Last Modified Time Details Appointments None record ed. Lab None record ed. Referral None record ed. Procedures None record ed. Surgeries None record ed. Imaging None record ed. MedicationOrders None record ed. VaccineOrders None record ed. Patient TargetsNo targets recorded. Patient InstructionsNo instructions recorded. Reason for Referral None Reported. Problems Name Problem SNOMED Code Status Onset Date Resolution Date Notes Provider Name and Address Organization Details Recorded Time No complaints 142856313 Active Status : 'A'; Not Available [employer] 4 09:11:17 Morbid obesity 451427072 Active 2023 Clifton Taylor MD [address], [place], [address] , [facility] 4 16:23:32 Osteoarthr itis of left hip joint 3825571544032 08 Active 2023 Clifton Taylor MD [address], [place], [address] , [facility] 16:30:51 Problem Notes None recorded. Procedures Surgical History Date Name Laterality Status Provider Name and Address Organization Details Recorded Time 5 Hip Kenalog Injection, L/R w/US completed Cabrera Boucher PA-C [address], [place], [address], [facility] 02/24/2025 14:56:26 5 Hip Kenalog Injection, L/R w/US completed Cabrera Boucher PA-C [address], [place], [address], [facility] 11/29/2024 12:01:22 5 Hip Kenalog Injection, L/R w/US completed Cabrera Boucher PA-C [address], [place], [address], [facility] 09/15/2024 11:30:49 4 Hip Kenalog Injection, L/R w/US completed Cabrera Boucher PA-C [address], [place], [address], [facility] 05/03/2024 21:51:37 4 49091 Therapeutic Exercise (1:1) completed Wilmer Grace, AT [address], [place], [address], [facility] 03/02/2024 21:22:37 4 17494 Therapeutic Exercise (1:1) completed Wilmer Grace, AT [address], [place], [address], [facility] 02/29/2024 18:27:52 4 80722 Therapeutic Exercise (1:1) completed Wilmer Grace, AT [address], [place], [address], [facility] 2024 21:14:28 4 00308: Manual therapy completed Wilmer Grace, AT [address], [place], [address], [facility] 2024 21:14:28 4 39567 Therapeutic Exercise (1:1) completed Wilmer Grace, AT [address], [place], [address], [facility] 02/17/2024 21:45:29 4 51471: Manual therapy completed Wilmer Grace, AT [address], [place], [address], [facility] 02/17/2024 21:45:29 4 46227 Therapeutic Exercise (1:1) completed Wilmer Grace, AT [address], [place], [address], [facility] 02/15/2024 17:48:31 4 61424: Manual therapy completed Wilmer Grace, AT [address], [place], [address], [facility] 02/15/2024 17:48:31 4 60017 Therapeutic Exercise (1:1) completed Wilmer Grace, AT [address], [place], [address], [facility] 02/10/2024 17:59:39 4 68301: Manual therapy completed Wilmer Grace, AT [address], [place], [address], [facility] 02/10/2024 17:59:39 4 35439 Therapeutic Exercise (1:1) completed Wilmer Grace, AT [address], [place], [address], [facility] 02/08/2024 21:11:14 4 49949: Manual therapy completed Wilmer Grace, AT [address], [place], [address], [facility] 02/08/2024 21:11:14 4 14485 Therapeutic Exercise (1:1) completed Wilmer Grace, AT [address], [place], [address], [facility] 02/03/2024 19:57:15 4 76587: Manual therapy completed Wilmer Grace, AT [address], [place], [address], [facility] 02/03/2024 19:57:15 4 Hip Kenalog Injection, L/R w/US completed Cabrera Boucher PA-C [address], [place], [address], [facility] 02/03/2024 11:08:02 4 66673 Therapeutic Exercise (1:1) completed Wilmer Grace, AT [address], [place], [address], [facility] 01/27/2024 19:37:48 4 17269: Manual therapy completed Wilmer Grace, AT [address], [place], [address], [facility] 01/27/2024 19:38:02 4 98172 Therapeutic Exercise (1:1) cancelled Shade Calles, PT [address], [place], [address], [facility] 01/19/2024 12:39:39 4 55044 Therapeutic Exercise (1:1) completed Shade Calles, PT [address], [place], [address], [facility] 01/18/2024 18:44:30 4 32166: Low complexity PT Eval completed Shade Calles, PT [address], [place], [address], [facility] 01/18/2024 18:44:34 Imaging Results None recorded. Procedure Notes None recorded. Medical Equipment None Reported. Allergies Allergen ID Allergen Name Allergen Category Reaction Reaction Severity Criticality Documentation Date Start Date Code Code System Note Provider Name and Address Organization Details Recorded Time 712760 amoxicill in trihydrat e medicatio n Not available Not available Not available 11/02/20232022 18897 8 RxNorm Not Available [facility] 16:13:32 424593 amoxicill in medicatio n rash Not available Not available 08/14/2025 723 RxNorm Not Available [facility] - External Data Service - prod 15:55:24 Medications Name Authored On Sig Start Date Stop Date Status Note Indication Fill Status Repeat Number Dispense Quantity LastModified by Organization Details LastModified Time aceta minop hen 325 mg table t 4 10:02:46 TAKE 2 TABL ETS BY MOUT H EVER Y 6 HOUR S active Not Available Not availab le 0 Not Available Not Available [facility] 12/09/2023 10:02:46 ergoc alcif carloz (denisse min D2) 1,250 mcg (50,0 00 unit) capsu le 4 10:02:46 TAKE 1 CAPS ULE BY PASCALE H ONCE EVER Y 30 DAYS active Not Available Not availab le 0 Not Available Not Available [facility] 12/09/2023 10:02:46 ketor olac 10 mg table t 4 10:02:46 TAKE 1 TABL ET (10 MG) BY MOMARIA LUISA H EVER Y 6 HOUR S NEED ED FOR MODE RATE PAIN SCAL E 4-6 active Not Available Not availab le 0 Not Available Not Available [facility] 12/09/2023 10:02:46 lidoc swathi 5 % topic al patch 4 10:02:46 APPL Y 1 TO 3 PATC HES TOPI CALL Y FOR UP TO 12 HOUR S ERICK Y active Not Available Not availab le 0 Not Available Not Available [facility] 12/09/2023 10:02:46 albut carloz sulfa te HFA 90 mcg/a ctuat ion aeros ol inhal er 4 10:02:46 INHA LE 2 PUFF S BY MOUT H EVER Y 4 TO 6 HOUR S NEED ED FOR 14 DAYS 12/08 aborted Not Available Not availab le 0 Not Available LOIDA STRATTON [facility] 12/09/2023 10:09:52 atomo xetin e 25 mg capsu le 4 10:02:46 TAKE ONE CAPS ULE BY MOUT H EVER Y MORN ING 12/08 aborted Not Available Not availab le 0 Not Available LOIDA STRATTON [facility] 12/09/2023 10:09:56 benzo natat e 100 mg capsu le 4 10:02:46 TAKE 2 CAPS ULE (ORA L) 3 TIME S PER DAY NEED ED - COUG H FOR 5 DAYS 12/08 aborted Not Available Not availab le 0 Not Available LOIDA STRATTON [facility] 12/09/2023 10:10:00 cyclo benza sherri 5 mg table t 4 10:02:46 TAKE 1 TO 2 TABL ETS BY MOUT H 3 TIME S A DAY NEED ED FOR MUSC LE SPAS M 12/08 aborted Not Available Not availab le 0 Not Available LOIDA STRATTON [facility] 12/09/2023 10:10:07 enoxa layla 40 mg/0. 4 mL subcu taneo us syrin ge 4 10:02:[address] THE CONT ENTS OF 1 SYRI NGE 0.4 ML) SUBC UTAN EOUS LY EVER Y 24 HOUR S FOR 7 DAYS 12/08 aborted Not Available Not availab le 0 Not Available LOIDA STRATTON [facility] 12/09/2023 10:10:22 oxyco done 10 mg table t 4 10:02:46 TAKE 1 TABL ET BY MOUT H EVER Y 4 TO 6 HOUR S NEED ED FOR S/P QUAD RACE PT REAT TACH MENT *INS COVE RS 3 TABL ETS ERICK Y* 12/08 aborted Not Available Not availab le 0 Not Available LOIDA STRATTON [facility] 12/09/2023 10:10:35 predn isone 50 mg table t 4 10:02:46 TAKE 1 TABL ET BY MOUT H EVER Y DAY FOR 5 DAYS 12/08 aborted Not Available Not availab le 0 Not Available LOIDA CHAYITO [facility] 12/09/2023 10:10:38 oxyco done 5 mg table t 4 10:02:46 TAKE ONE TABL ET BY MOUT H EVER Y 4 TO 6 HOUR S NEED ED FOR MODE RATE PAIN 12/08 aborted Not Available Not availab le 0 Not Available LOIDA CHAYITO [facility] 12/09/2023 10:10:41 pseud oephe drghulam -bob fenes in ER 80-70 0 mg table t,ext ended relea se 4 19:04:40 1-2 TAB PO Q 4-6 HRS PRN PAIN DO NOT SARABJIT Malagon ON THIS MEDI NIKI ON 12/08 aborted Statu s: 'Curr ent'; Not Available Not availab le 0 Not Available LOIDA STRATTON [facility] 12/09/2023 10:10:43 Vyvan se 60 mg capsu le 4 10:02:46 TAKE 1 CAPS ULE BY MOUT H ONCE ERICK Y IN THE IN THE MORN ING 12/08 aborted Not Available Not availab le 0 Not Available LOIDA STRATTON [facility] 12/09/2023 10:10:47 Stool Softe ner 100 mg capsu le 4 10:02:46 TAKE ONE CAPS ULE BY MOUT H TWIC E A DAY 12/08 aborted Not Available Not availab le 0 Not Available LOIDA STRATTON [facility] 12/09/2023 10:10:50 Wegov y 0.25 mg/0. 5 mL subcu taneo us pen injec tor 4 10:11:[address] by subc utan eous rout e. active Not Available Not availab le 0 Not Available LOIDA STRATTON [place] [facility] 12/09/2023 10:11:02 melox icam 15 mg table t 4 06:53:21 active Not Available Not availab le 0 Not Available Not Available [facility] 01/27/2024 06:53:21 Wegov y 2.4 mg/0. 75 mL subcu taneo us pen injec tor 5 05:35:[address] 0.75 ML UNDE R THE SKIN EVER Y WEEK active Not Available Not availab le 0 Not Available Not Available [facility] 09/16/2024 05:35:59 Zepbo und 2.5 mg/0. 5 mL subcu taneo us pen injec tor 5 05:35:[address] 0.5M L UNDE R THE SKIN ONCE A WEEK . THIS REPL ACES WEGO VY) active Not Available Not availab le 0 Not Available Not Available [facility] 09/16/2024 05:35:59 clind amyci n HCl 150 mg capsu le 5 04:58:30 TAKE 3 CAPS ULES BY MOUT H THRE E TIME S A DAY FOR 7 DAYS active Not Available Not availab le 0 Not Available Not Available [facility] - External Data [employer] - prod 11/30/2024 04:58:30 Zepbo und 7.5 mg/0. 5 mL subcu taneo us pen injec tor [address] 04:58:[address] 0.5M L SUBC UTAN EOUS ROUT E ONCE WEEK LY active Not Available Not availab le 0 Not Available Not Available [facility] - External [employer] - prod 11/30/2024 04:58:30 doxyc yclin e hycla te 100 mg table t 5 04:58:31 TAKE ONE TABL ET BY MOUT H TWIC E A DAY FOR 7 DAYS active Not Available Not availab le 0 Not Available Not Available [facility] - External Data [employer] - prod 11/30/2024 04:58:31 Zepbo und 5 mg/0. 5 mL subcu taneo us pen injec tor 5 04:58:[address] 0.5M L SUBC UTAN EOUS ONCE WEEK LY active Not Available Not availab le 0 Not Available Not Available [facility] - External Data Service - prod 11/30/2024 04:58:31 Zepbo und 10 mg/0. 5 mL subcu taneo us pen injec tor 10:16:[address] 0.5M L BY SUBC UTAN EOUS ROUT E ONCE A WEEK active Not Available Not availab le 0 Not Available Not Available [facility] [employer] - prod 02/26/2025 10:16:02 Vitals Date Recorded Body height Body mass index (BMI) Body weight Provider Name and Address Organization Details Last Updated DateTime 09/16/2024 195.58 cm 47.8 kg/m2 360737.73 g Loida Gil [facility] 09/16/2024 15:17:15 Date Recorded Body height Body mass index (BMI) Body weight Provider Name and Address Organization Details Last Updated DateTime 11/30/2024 195.58 cm 35.6 kg/m2 574123.71 g Loida Gil [facility] 11/30/2024 16:24:08 Date Recorded Body height Body mass index (BMI) Body weight Provider Name and Address Organization Details Last Updated DateTime 03/01/2025 195.58 cm 35.6 kg/m2 684064.71 g Cabrera Boucher PA-C [address], [place], [address], [facility] 03/01/2025 09:00:55 Social History Social History Observation Description Date Observed Sex Unknown 03/01/2025 Legal Sex Male Status Not (finding) 08/25/20 25 No social history survey screeners recorded No social history SDOH screeners recorded Functional Status None recorded. No Functional Screening assessment recorded No Functional SDOH screeners recorded Mental Status None recorded. No Mental Screening assessment recorded No Mental SDOH screeners recorded Family History Nothing Reported. Medical History No medical history recorded. Past Encounters Encounter ID Performer Location Encounter Start Date Encounter Closed Date Diagnosis/Indication Diagnosis SNOMED-CT Code Diagnosis ICD10 Code Diagnosis IMO Codes Diagnosis Note [id number] MD [facility] [address] [place] [address] 12/09/2023 09:58:38 12/30/2023 14:07:05 Pain of left knee joint 2958446406 83044 M25.562 Pain of hip region 36837 002 M25.552 Morbid obesity 747460169 E66.01 Osteoarthr itis of left hip joint 6738274420 73100 M16.12 [id number] Shade Senser, PT [facility] [address] [place] [address] 01/18/2024 18:02:00 01/18/2024 18:10:55 Osteoarthritis of hip 860021659 M16.12 [id number] Wilmer Grace, AT [facility] [address] [place] [address] 01/27/2024 17:56:38 01/27/2024 21:22:02 Osteoarthritis of hip 433555777 M16.12 [id number] Cabrera Boucher PA-C [facility] [address] [place] [address] 02/03/2024 09:51:58 02/03/2024 12:32:20 Osteoarthritis of left hip joint 5438796026 95366 M16.12 [id number] Wilmer Grace, AT [facility] [address] [place] [address] 02/03/2024 18:00:02 02/03/2024 18:07:58 Osteoarthritis of hip 391959603 M16.12 [id number] Wilmer Grace, AT [facility] [address] [place] [address] 02/08/2024 18:00:20 02/08/2024 18:04:29 Osteoarthritis of hip 541401330 M16.12 [id number] Wilmer Grace, AT [facility] [address] [place] [address] 02/10/2024 17:58:15 02/10/2024 18:08:08 Osteoarthritis of hip 815817348 M16.12 [id number] Wilmer Grace, AT [facility] [address] [place] [address] 02/15/2024 17:29:12 02/15/2024 18:01:27 Osteoarthritis of hip 209485195 M16.12 [id number] [facility] [address] [place] [address] 02/17/2024 17:28:01 02/17/2024 18:04:15 Osteoarthritis of hip 647963473 M16.12 [id number] [facility] [address] [place] [address] 2024 17:31:23 2024 18:06:08 Osteoarthritis of hip 042927880 M16.12 [id number] [facility] [address] [place] [address] 02/29/2024 17:32:41 02/29/2024 18:06:31 Osteoarthritis of hip 094287817 M16.12 [id number] [facility] [address] [place] [address] 03/02/2024 17:30:03 03/02/2024 18:06:30 Osteoarthritis of hip 422223134 M16.12 [id number] Cabrera Boucher PA-C [facility] [address] [place] [address] 05/06/2024 09:09:52 05/06/2024 09:24:14 Osteoarthritis of left hip joint 9942853062 62815 M16.12 [id number] MANDY Lizarraga [facility] [address] [place] [address] 09/16/2024 15:10:51 10/03/2024 08:08:23 Osteoarthritis of left hip joint 7886060850 97880 M16.12 [id number] [id number] MANDY Lizarraga [facility] [address] [place] [address] 11/30/2024 15:54:50 12/15/2024 15:29:14 Osteoarthritis of left hip joint 1422497923 20224 M16.12 8075159 [id number] MANDY Lizarraga [address] [place] [address] 03/01/2025 08:54:54 03/16/2025 08:23:09 Osteoarthritis of left hip joint 4507343101 52799 M16.12 [id number] Health Concerns Section Related Observation LastModified by Organization Detai ls LastModified Time None Recorded Concern Status LastModified by Organization Details LastModified Time None Recorded SDOH Concern Status LastModified by Organization Detai ls LastModified Time None Recorded Advance Directives Directive None Recorded Payers Insurance Date Sequence Insurance Name Policy Number Policy Aleman Covered Member ID Aleman Member ID Guarantor Name 02/03/[address] [facility] Department Julián Canales 03/25/2024 [facility] Yolanda Service Julián Canales 05/25/2024 [facility] Julián Canales Notes Date Note Type Note Provider Name and Address Organization Details Recorded Time 03/02/2024 text/html Patient presents today reporting 1/10 pain. Pt states doing well, pains decreased and mobility exercises getting better. Wilmer Grace, AT [address] [facility] [address], [place], [address], [facility] 03/02/2024 21:24:51 05/06/2024 text/html I am seeing the patient today under the supervision of Dr. Cerda who was available but who did not see the patient. HPI: The patient returns for follow-up of left hip pain. The history is outlined by previous notes. The patient has recurrent pain about the left hip. Past family, medical, social history and review of systems has been reviewed, updated and is located in the patient s chart. Examination: The patient is well appearing and in no apparent distress. Alert and oriented x3. Gait is symmetric. No significant swelling warmth or erythema about the left hip. Range of motion of the left hip is decreased in all planes. . Peripheral, vascular, lymphatic examination, skin, neurological, coordination, reflexes, sensation are within normal limits. Impression: Osteoarthritis of the left hip Plan: Reviewed diagnosis with the patient today in the office. We discussed the patient's options. We discussed the risks, options, benefits In regards toa total hip arthroplasty. We discussed the surgery itself and rehabilitation process. We discussed conservative management. Activity modification discussed. P.r.n. NSAIDs can use. We discussed the risks associated with NSAID use. I injected 40 mg of Kenalog and 2 cc of 1% lidocaine into the left hip joint using the ultrasound-guided technique under sterile conditions. The patient tolerated the injection well. Cabrera Boucher PA-C [address], [place], [address], [facility] 05/06/2024 09:22:03 09/16/2024 text/html I am seeing the patient today under the supervision of Dr. Da Silva who was available but who did not see the patient. HPI: The patient returns for follow-up of left hip pain. The history is outlined by previous notes. The patient has recurrent pain about the left hip. Past family, medical, social history and review of systems has been reviewed, updated and is located in the patient s chart. Examination: The patient is well appearing and in no apparent distress. Alert and oriented x3. Gait is symmetric. No significant swelling warmth or erythema about the left hip. Range of motion of the left hip is decreased in all planes. . Peripheral, vascular, lymphatic examination, skin, neurological, coordination, reflexes, sensation are within normal limits. Impression: Osteoarthritis of the left hip Plan: Reviewed diagnosis with the patient today in the office. We discussed the patient's options. We discussed the risks, options, benefits In regards total hip arthroplasty. We discussed the surgery itself and rehabilitation process. We discussed conservative management. Activity modification discussed. P.r.n. NSAIDs can use. We discussed the risks associated with NSAID use. I injected 40 mg of Kenalog and 2 cc of 1% lidocaine into the left hip joint using the ultrasound-guided technique under sterile conditions. The patient tolerated the injection well. Cabrera Boucher PA-C [address], [place], [address], [facility] 09/16/2024 15:33:33 11/30/2024 text/html I am seeing the patient today under the supervision of Dr. Taylor who was available but who did not see the patient. HPI: The patient returns for follow-up of left hip pain. The history is outlined by previous notes. The patient has recurrent pain about the left hip. Past family, medical, social history and review of systems has been reviewed, updated and is located in the patient s chart. Examination: The patient is well appearing and in no apparent distress. Alert and oriented x3. Gait is symmetric. No significant swelling warmth or erythema about the left hip. Range of motion of the left hip is decreased in all planes. . Peripheral, vascular, lymphatic examination, skin, neurological, coordination, reflexes, sensation are within normal limits. Impression: Osteoarthritis of the left hip Plan: Reviewed diagnosis with the patient today in the office. We discussed the patient's options. We discussed the risks, options, benefits In regards toa total hip arthroplasty. We discussed the surgery itself and rehabilitation process. We discussed conservative management. Activity modification discussed. P.r.n. NSAIDs can use. We discussed the risks associated with NSAID use. I injected 40 mg of Kenalog and 2 cc of 1% lidocaine into the left hip joint using the ultrasound-guided technique under sterile conditions. The patient tolerated the injection well. Cabrera Boucher PA-C [address] [facility] [address], [place], [address], [facility] 12/01/2024 20:20:15 03/01/2025 text/html I am seeing the patient today under the supervision of Dr. Taylor who was available but who did not see the patient.HPI:Patient returns for left hip pain. History of arthritis of left hip and receives occasional injections into the joint which help his discomfort. However, he is considering his surgical options. With increased activity he has pain that radiates into the groin. He denies recent injury.Past family, medical, social history and review of systems has been reviewed, updated and is located in the patient s chart.Examination:T he patient is well appearing and in no apparent distress. Alert and oriented x3. Gait is symmetric. No significant swelling, warmth, erythema over the left hip. Range motion left hip is flexion to 90 with internal and external rotation to 15 with pain. Good strength of left hip. Peripheral, vascular, lymphatic examination, skin, neurological, coordination, reflexes, sensation are within normal limits.Impression:Le ft hip arthritisPlan:I reviewed the x-rays and diagnosis with the patient. We did discuss his options. We discussed continuing conservative management. Activity modification discussed. P.r.n. NSAIDs can be used. We discussed risks associated with NSAID use such as stomach irritation and potential kidney dysfunction. We discussed further injection therapies of cortisone into the hip joint. We discussed the risks, options, benefits regards to total hip replacement surgery. We discussed the surgery itself rehabilitation process. We discussed the surgery as an outpatient. Answers questions to his satisfaction today. He is considering going forward with total hip arthroplasty this fall. Therefore, I will follow up with Dr. Negrete to discuss surgical options. In the meantime, he will continue with conservative management. I did inject the left hip with cortisone. Cabrera Boucher PA-C [address], [place], [id number], [facility] - [facility] 03/01/2025 09:35:50 Care Team Name Role Member ID Specialty Address Phone ALYSSA JAIN MD Primary Care Provider [id number] [place] [address], [place], [place]
--- NOTE | 2025-08-25 00:30 | ED.URI ---
HPI - URI/Sore Throat General Chief Complaint: Upper Respiratory Symptoms Stated Complaint: flu symptoms Time Seen by Provider: 08/24/25 23:35 Source: patient Mode of arrival: ambulatory Limitations: no limitations History of Present Illness ED Provider: Dr. Yara Martin HPI Narrative: 35-year-old male with no significant past medical history presents to the ED with one week of influenza confirmed illness, now with worsening cough, shortness of breath, intermittent fever (Tmax 102 ?F), and associated diarrhea with bright-green stools. Symptoms began the Thursday before ; flu was confirmed the following Thursday. He reports persistent viral symptoms and poor sleep, feeling congestion and a constant throat sensation but minimal sputum production. Fever has not been daily and responds transiently to ibuprofen/Tylenol, last given on arrival to the ED. He trialed OTC NyQuil until yesterday but felt these increased congestion and disturbed sleep. Denies nausea or vomiting. No known chronic lung disease, surgical history, or daily medications. No tobacco use; alcohol approximately once per month. Multiple family members sick also at home. He was not vaccinated for influenza this season. Related Data Previous Rx's ?Medication ?Instructions ?Recorded clindamycin HCl 150 mg capsule 450 mg (3 x 150 mg) PO TID 7 days 11/23/24 #63 caps doxycycline hyclate 100 mg tablet 100 mg PO BID 7 days #14 tabs 11/23/24 codeine 10 mg-guaifenesin 100 mg/5 5 ml PO Q6H PRN cough #118 mL 08/25/25 mL oral liquid (G Tussin AC) ondansetron 4 mg disintegrating 4 mg PO Q8H PRN nausea and 08/25/25 tablet vomiting #10 tabs Allergies Allergy/AdvReac Type Severity Reaction Status Date / Time amoxicillin Allergy Anaphylaxis Verified 08/24/25 22:02 Review of Systems Review of Systems: as per HPI, full review of systems performed and negative but for the above mentioned pertinent positives and negatives. [facility] Social History Social History Advance Directives: No Advance Directives Information Provided: Yes Do you have a plan to hurt others: No Plan Physical Exam Exam: Exam: GENERAL: Ill-Appearing, appears uncomfortable. SKIN: Normal skin color for ethnicity, warm, dry, no rashes noted. HEENT:? Normocephalic, atraumatic, no stridor, dry mucous membranes, dentition intact, EOMI. NECK: Soft, supple, full ROM, midline structures nontender, no step-offs, no deformities, no lymphadenopathy. CHEST: Heart regular tachycardia, no murmurs, symmetric chest rise and fall. PULMONARY: Clear to auscultation bilaterally, diminished at the bases, no labored breathing, no wheezes/rhales/rhonchi. ABDOMINAL: Soft, nondistended, nontender, positive bowel sounds in all quadrants. : Deferred. MUSCULOSKELETAL: Normal tone, full range of motion, no deformities, no peripheral edema. NEURO: Alert and oriented x3, CN II through XII intact, equal strength and sensation bilateral upper and lower extremities, no focal neurologic deficits.? PSYCHIATRIC: Flat affect, fluid speech, good eye contact and appropriate demeanor. Vital Signs: Vital Signs: Last Vital Signs Temp 99.2 F 08/25/25 02:41 Pulse 82 08/25/25 02:41 Resp 12 08/25/25 02:41 BP 122/61 08/25/25 02:41 Pulse Ox 95 08/25/25 02:41 O2 Del Method Room Air 08/25/25 02:41 BMI result Body Mass Index 37.9 Medications Administered Discontinued Medications Generic Name Dose Route Start Last Admin Trade Name Freq PRN Reason Stop Dose Admin Acetaminophen 975 mg 08/24/25 22:07 08/24/25 22:09 Acetaminophen 325 Mg Tablet PO 08/24/25 22:08 975 mg ONCE ONE Administration Guaifenesin/Codeine Phosphate 10 ml 08/25/25 00:28 08/25/25 01:16 Guaifen/Codeine Sf 200/20/10ml 10 Ml Liquid PO 08/25/25 00:29 10 ml ONCE ONE Administration Medical Decision Making Medical Decision Making MDM Narrative: Patient presents today with flu-like symptoms. Differential diagnosis includes influenza, coronavirus, pneumonia, upper respiratory infection, among others. Most importantly, this patient is not in any acute respiratory distress. They have normal oxygen levels at room air. Laboratory-confirmed influenza A/B (specific strain not documented) on day 7 of illness, presenting with persistent viral symptoms (cough, SOB, fever) and diarrhea, with evaluation negative for pneumonia or streptococcal pharyngitis. Problem #1: Influenza infection with associated cough, SOB, fever, diarrhea Assessment: Day 7 of influenza with ongoing viral shedding; patient remains symptomatic but hemodynamically stable. No evidence of secondary bacterial infection on CXR or labs. Plan: - Symptomatic management: Continue alternating acetaminophen and ibuprofen for fever/pain as needed. - Cough medicine offered; caution regarding drowsiness and avoidance of driving. - Hydration encouraged; rest as tolerated; warm fluids such as soup recommended. - Return precautions: worsening shortness of breath, development of green/brown sputum, persistent high fevers not responsive to antipyretics, or any other concerning change. - Follow-up: Return to ED or PCP if no improvement or if symptoms worsen. Differential Diagnosis Differential Diagnoses: The differential diagnosis associated with the presentation includes (as above) Admission/Observation Consideration of admission/observation: Escalation of care including admission/observation considered Lab Data MDM Lab Attestation statement: I reviewed the patient's lab results. 08/24/25 22:23 08/24/25 22:23 Labs: Lab Results 08/24/25 Range/Units 22:23 WBC 8.1 (4.8-10.8) X10*3/uL RBC 4.50 L (4.60-5.80) X10*6/uL Hgb 14.2 (14.0-18.0) g/dl Hct 40.8 L (42.0-52.0) % MCV 90.7 (80.0-98.0) fL MCH 31.6 (27.0-33.0) pg MCHC 34.8 (31.0-36.0) g/dl RDW 11.9 (11.0-16.0) % Plt Count 238 (160-400) X10*3/uL MPV 10.0 (9.4-12.4) fL Immature Gran % (Auto) 0.1 (0.0-0.4) % Neut % (Auto) 74.1 H (45-73) % Lymph % (Auto) 16.5 L (20-40) % Giles % (Auto) 8.4 (2-11) % Eos % (Auto) 0.5 (0-4) % Baso % (Auto) 0.4 (0-2) % Lymph # (Auto) 1.3 (1.2-4.9) X10*3/uL Giles # (Auto) 0.7 (0.1-1.2) X10*3/uL Eos # (Auto) 0.0 (0.0-0.4) X10*3/uL Baso # (Auto) 0.0 (0.0-0.2) X10*3/uL Abs Immat Gran (auto) 0.01 (0.00-0.03) X10*3/uL Absolute Neuts (auto) 6.0 (2.0-8.3) x10*3/uL Absolute Nucleated RBC 0.000 (0.0-0.012) X10*3/uL Nucleated RBC % (auto) 0.0 (0.0-0.2) /100WBC Sodium 140 (135-145) mmol/L Potassium 3.7 (3.3-5.1) mmol/L Chloride 106 (96-108) mmol/L Carbon Dioxide 25 (22-29) mmol/L Anion Gap 13 (12-20) BUN 13 (9-16) mg/dL Creatinine 1.12 (0.5-1.4) mg/dL Estim Creat Clear Calc 142.4 Estimated GFR > 60 Random Glucose 100 (60-115) mg/dL Calcium 8.9 (8.4-10.2) mg/dL Influenza Type A (PCR) POSITIVE A (Negative) Influenza Type B (PCR) NEGATIVE (Negative) RSV RNA Qual (PCR) NEGATIVE (Negative) SARS-CoV-2 RNA (RT-PCR) NEGATIVE (Negative) S. pyogenes GrpA NOY Negative (Negative) Independent Interpretation I performed an independent interpretation of an: Plain X-Ray Interpretation: My independent interpretation of the chest x-ray reveals no consolidations, pulmonary edema, pleural effusion, pneumothorax, obvious bony abnormalities. Radiology Impression Discussion of test interpretation with radiology: I have reviewed the radiologist's reading. Independent Historian Clinical information obtained from an independent historian. History obtained from or confirmed by: Spouse External Record Review External record reviewed: Inpatient record Prescription Management I considered prescription management with: Pain Medication and Antiviral Discharge Plan Discharge Clinical Impression: Influenza A Patient Disposition: Home, Self-Care Instructions: Influenza (ED) Additional Instructions: Keep your mask on if you have to go into public for any reason while you are ill. Use Tylenol and Motrin around the clock for fever and body aches. Use Robitussin AC as needed for cough. Do not drive while taking this medication as it can make you drowsy. Use Zofran (ondansetron) as needed for nausea. Return to the emergency department with any new or worsening symptoms including: Worsening shortness of breath, continued fevers despite medications, inability to tolerate food or drink. Call 911 with any medical emergency. Prescriptions: New codeine-guaifenesin [G Tussin AC] 10-100 mg/5 mL liquid 5 ml PO Q6H PRN (Reason: cough) Qty: 118 0RF ondansetron 4 mg tablet,disintegrating 4 mg PO Q8H PRN (Reason: nausea and vomiting) Qty: 10 0RF No Action clindamycin HCl 150 mg capsule 450 mg PO TID 7 Days Qty: 63 0RF doxycycline hyclate 100 mg tablet 100 mg PO BID 7 Days Qty: 14 0RF Interventions: ED Discharge Assessment Last Done: 08/25/25 02:41 Discharge Date/Time: 08/25/25 01:20 Print Language: Persian
[2025-08-25] MEDS: guaiFEN/Codeine SF 200/20/10ML 10 ML LIQUID PO (01:16)
[2025-08-25 02:41] VITALS: BP 122/61; PULSE 82; RESP 12; TEMP 37.3; O2SAT 95
== END 2025-08-25 01:20 | disposition home or self-care (01) ==
PROVIDERS: Emergency Provider Emergency Medicine; PCP Physician Assistant
DX: J10.1 Influenza due to other identified influenza virus with other respiratory manifestations (principal); R05.9 Cough, unspecified; R06.02 Shortness of breath; R50.9 Fever, unspecified
CPT/HCPCS: 71046; 80048; 85025; 87637; 87651; 99283

== ENCOUNTER → 2025-08-24 22:05 | Outpatient (BNV) | payer OTHER, SELFPAY | PROVIDERS: Visit Provider Radiology Diagnostic Radiology | DX: R05.9 Cough, unspecified (principal); R06.02 Shortness of breath | CPT/HCPCS: 71046 ==